=== PATIENT | female | born 1955 | race Caucasian/White ===

== ENCOUNTER 2021-12-27 16:12 | Inpatient (IN) | payer MEDICARE, SELFPAY ==
[2021-12-27] VITALS (12 sets, daily range): BP systolic 155–182; BP diastolic 75–85; PULSE 107–136; RESP 18–26; TEMP 36.7–37.2; O2SAT 98–100; BMI 21.9
--- NOTE | 2021-12-27 18:09 | XRR_ITS ---
PROCEDURE INFORMATION: Exam: XR Chest Exam date and time: 12/27/2021 6:23 PM Age: 66 years old Clinical indication: Other: Weakness TECHNIQUE: Imaging protocol: Radiologic exam of the chest. Views: 1 view. COMPARISON: No relevant prior studies available. FINDINGS: Lungs: Unremarkable. No consolidation. Pleural spaces: Unremarkable. No pleural effusion. No pneumothorax. Heart/Mediastinum: Unremarkable. No cardiomegaly. Bones/joints: Unremarkable. XR/XR chest 1V portable [id number] IMPRESSION: No acute findings.
--- NOTE | 2021-12-27 18:09 | ECG_ITS ---
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 Measurements Intervals Banks Rate: 108 P: 36 VT: 207 QRS: 2 QRSD: 101 T: 75 QT: 327 QTc: 440 Interpretive Statements SINUS TACHYCARDIA ANTERIOR MYOCARDIAL INFARCTION , OF INDETERMINATE AGE [40+ ms Q WAVE AND/OR ST/T ABNORMALITY IN V3/V4] No previous ECG available for comparison Electronically Signed On 12-27-2021 22:50:54 CDT by Danuta Lux M.D. [id number]
--- NOTE | 2021-12-27 18:10 | W.ED.GENADLT ---
HPI - General Adult General: Chief complaint: Recheck/Abnormal Lab/Rx Stated complaint: abnormal labs Time Seen by Provider: 12/27/21 18:08 History of Present Illness: Patient is a 66-year-old female who presents emergency room for concerns of abnormal lab. Patient was found routine blood work to have of elevated kidney function, and hyperkalemia. Patient has no focal complaints at this time. Denies nausea/vomiting, fever/chill, chest pain, shortness of breath, abdominal pain, dysuria/hematuria/polyuria, diarrhea/melena/hematochezia. Onset: unknown Duration:ongoing Location:home Severity:moderate Associated symptoms: Deny chest pain, dyspnea, nausea, rash, palpitations or vomiting Review of Systems Const: Denies: fever(s) or chills Eyes: Denies: change in vision ENMT: Denies: mouth pain Card: Denies: chest pain or palpitations Resp: Denies: dyspnea or non-productive cough GI: Denies: abdominal pain, nausea, vomiting or diarrhea : Denies: dysuria Musc: Denies: extremity pain Skin/Breast: Denies: rash or new lesions Neuro: Denies: weakness in extremities Psych: Reports: other (Normal mood) Daniel/Lymph: Denies: easy bruising PFSH ED PFSH: Medical History Diabetes Hypertension Social History Smoking and tobacco status: never smoked Alcohol intake: never Substance/Drug Use: never Physical Exam Const: COMMON NORMALS: alert HENMT: COMMON NORMALS: atraumatic HEAD & SCALP: atraumatic MOUTH: moist mucous membranes not abnormal Eye: COMMON NORMALS: EOMs intact bilaterally and conjunctivae normal CONJUNCTIVA: Yes conjunctivae normal Neck/C-Spine: COMMON NORMALS: full ROM and supple Resp: COMMON NORMALS: normal respiratory effort and clear to auscultation bilaterally AUSCULTATION: clear to auscultation bilaterally Cardio: RATE: tachycardic GI: COMMON NORMALS: Soft to palpation and non-tender PALPATION: Yes Soft to palpation Extremity: COMMON NORMALS: full ROM Neuro: SENSORIUM/ORIENTATION: Yes alert MOTOR EXAM: No Abnormal motor strength present and Other motor observations present (no focal motor deficits) Psych: COMMON NORMALS: speech normal SPEECH: Yes normal speech MOOD & AFFECT: Yes euthymic mood Course Vital Signs: Vital signs: Vital Signs Temperature 98.0 F 12/27/21 17:23 Pulse Rate 113 H 12/27/21 21:24 Respiratory Rate 23 H 12/27/21 21:24 Blood Pressure 171/82 12/27/21 21:24 Pulse Oximetry 99 12/27/21 21:24 Oxygen Delivery Me thod 12/27/21 21:24 MDM - General Adult Medical Decision Making 66-year-old female presenting to the emergency room for abnormality on routine blood work. Patient's hemodynamically stable with mild tachycardia to the low 100-110s. Patient has potassium 5.6 today. Creatinine of 2.8. BUN of 94. Patient is AAO x3 answering all my questions. EKG did not show signs of hyperkalemia. This was discussed with telemetry nephrology will follow the case. Patient received IVF, 80 mg of Lasix, dextrose 50x2, 10 units of short acting insulin. Patient admitted to the hospital for management of electrolyte changes. Disposition: admission Lab Data : 12/27/21 18:25 12/27/21 18:25 Radiology Impressions Chest X-Ray 12/27/21 18:09 IMPRESSION: No acute findings. Laboratory Results WBC 13.8 10^3/uL (4.0-10.0) H 12/27/21 18:25 RBC 4.03 10^6/uL (4.1-5.3) L 12/27/21 18:25 Hgb 10.9 g/dL (11.5-15.3) L 12/27/21 18: Hct 33.9 % (37.0-47.0) L 12/27/21 18:25 MCV 84.1 fl (81-99) 12/27/21 18: MCH 27.0 pg (28.0-34.0) L 12/27/21 18: MCHC 32.2 g/dL (30.0-36.0) 12/27/21 18:25 RDW 12.6 % (12.1-15.1) 12/27/21 18:25 Plt Count 418 10^3/cmm (130-400) H 12/27/21 18:25 MPV 8.8 fL (7.4-10.4) 12/27/21 18:25 Neut % (Auto) 73.2 % 12/27/21 18:25 Lymph % (Auto) 19.5 % 12/27/21 18:25 Daniels % (Auto) 6.4 % 12/27/21 18:25 Eos % (Auto) 0.3 % 12/27/21 18:25 Baso % (Auto) 0.4 % 12/27/21 18:25 Neut # (Auto) 10.13 10^3/uL (1.8-7.7) H 12/27/21 18:25 Lymph # (Auto) 2.7 10^3/uL (0.8-4.8) 12/27/21 18:25 Daniels # (Auto) 0.9 10^3/uL (0.2-0.9) 12/27/21 18:25 Eos # (Auto) 0.0 10^3/uL (0.0-0.8) 12/27/21 18: Baso # (Auto) 0.1 10^3/uL (0.0-0.1) 12/27/21 18: Nucleated RBC % (auto) 0 % 12/27/21 18: Nucleated RBCs # 0.0 /100WBC 12/27/21 18:25 Sodium 137 mmol/L (136-145) 12/27/21 18:25 Sodium Cancelled 12/27/21 18:25 Potassium 5.6 mmol/L (3.5-5.1) H 12/27/21 18:25 Potassium Cancelled 12/27/21 18:25 Chloride 103 mmol/L (98-107) 12/27/21 18:25 Chloride Cancelled 12/27/21 18:25 Carbon Dioxide 18 mmol/L (22-29) L 12/27/21 18:25 Carbon Dioxide Cancelled 12/27/21 18:25 Anion Gap 21.6 (5-19) H 12/27/21 18:25 Anion Gap Cancelled 12/27/21 18:25 BUN 94 mg/dL (8-23) H* 12/27/21 18:25 BUN Cancelled 12/27/21 18:25 Creatinine 2.8 mg/dL (0.5-0.9) H 12/27/21 18:25 Creatinine Cancelled 12/27/21 18:25 GFR Calculation 16.9 mL/min (90-130) L 12/27/21 18:25 GFR Calculation Cancelled 12/27/21 18:25 Glucose 164 mg/dL (65-115) H 12/27/21 18:25 Glucose Cancelled 12/27/21 18:25 POC Glucose 175 mg/dL (70-110) H 12/27/21 18:14 Calculated Osmolality 317 mOsm/kg (285-295) H 12/27/21 18:25 Calculated Osmolality Cancelled 12/27/21 18:25 Calcium 12.5 mg/dL (8.5-10.5) H 12/27/21 18:25 Calcium Cancelled 12/27/21 18:25 Total Bilirubin 0.2 mg/dL (0.15-1.2) 12/27/21 18:25 Total Bilirubin Cancelled 12/27/21 18:25 AST 14 U/L (0-32) 12/27/21 18:25 AST Cancelled 12/27/21 18:25 ALT 26 U/L (0-33) 12/27/21 18:25 ALT Cancelled 12/27/21 18:25 Alkaline Phosphatase 171 U/L (35-105) H 12/27/21 18:25 Alkaline Phosphatase Cancelled 12/27/21 18:25 Troponin T Baseline 34 ng/L (0-10) H 12/27/21 18:25 Total Protein 7.6 g/dL (6.6-8.7) 12/27/21 18:25 Total Protein Cancelled 12/27/21 18:25 Albumin 4.2 g/dL (3.5-5.2) 12/27/21 18:25 Albumin Cancelled 12/27/21 18:25 Globulin 3.4 g/dL (1.3-4.6) 12/27/21 18:25 Globulin Cancelled 12/27/21 18:25 Lipase Cancelled 12/27/21 18:25 Discharge Plan Discharge Patient Disposition: Admitted As Inpatient Clinical Impression: Uremia, CKD (chronic kidney disease), Hyperkalemia Condition: Stable Coding Level of Care Code ED Hardening Machine Operator for Chg Fwd Exam Comprehensive
[2021-12-27 18:18] LABS: Glucose Point of Care 175 mg/dL (70-110)
[2021-12-27 18:35] LABS: Basophils # 0.1 10^3/uL (0.0-0.1); Basophils % 0.4 %; Eosinophils % 0.3 %; Hematocrit 33.9 % (37.0-47.0); Hemoglobin 10.9 g/dL (11.5-15.3); Lymphocytes # 2.7 10^3/uL (0.8-4.8); Lymphocytes % 19.5 %; Mean Corpuscular HGB Conc 32.2 g/dL (30.0-36.0); Mean Corpuscular Volume 84.1 fl (81-99); Mean Platelet Volume 8.8 fL (7.4-10.4); Monocytes # 0.9 10^3/uL (0.2-0.9); Monocytes % 6.4 %; Neutrophils # 10.13 10^3/uL (1.8-7.7); Neutrophils % 73.2 %; Nucleated Red Blood Cells % 0 %; Platelet Count 418 10^3/cmm (130-400); Red Blood Count 4.03 10^6/uL (4.1-5.3); Red Cell Distribution Width 12.6 % (12.1-15.1); White Blood Count 13.8 10^3/uL (4.0-10.0)
--- NOTE | 2021-12-27 18:49 | PC.NURSE ---
Pt resting in bed, visitor at bedside. Pt A&Ox4, lung sounds clear bilat, heart sounds WNL, bowel sounds present.
--- NOTE | 2021-12-27 18:54 | PC.NURSE ---
report given to OBDULIA Day
[2021-12-27 18:58] LABS: Troponin(5th) Baseline 34 ng/L (0-10)
[2021-12-27 20:11] LABS: Alanine Aminotransferase 26 U/L (0-33); Albumin Level 4.2 g/dL (3.5-5.2); Alkaline Phosphatase 171 U/L (35-105); Anion Gap 21.6 (5-19); Aspartate Amino Transferase 14 U/L (0-32); Calcium 12.5 mg/dL (8.5-10.5); Carbon Dioxide 18 mmol/L (22-29); Chloride 103 mmol/L (98-107); Globulin 3.4 g/dL (1.3-4.6); Glomerular Filtration Rate 16.9 mL/min (90-130); Glucose 164 mg/dL (65-115); Osmolality Calculated 317 mOsm/kg (285-295); Potassium 5.6 mmol/L (3.5-5.1); Sodium 137 mmol/L (136-145); Total Bilirubin 0.2 mg/dL (0.15-1.2); Total Protein 7.6 g/dL (6.6-8.7)
[2021-12-27 20:15] LABS: Blood Urea Nitrogen 94 mg/dL (8-23)
[2021-12-27] MEDS: insulin lispro 100 unit/1 mL 10 UNIT SUBCUT (21:09)
[2021-12-27] MEDS: dextrose 50% syringe 50 mL IVP ×2 (21:09)
[2021-12-27] MEDS: sodium chloride 0.9% 1,000 ML 999 ML IV (21:12)
[2021-12-27] MEDS: FUROsemide 10 mg/mL SDV 10mL 80 MG IVP (21:12)
[2021-12-27 21:25] LABS: Troponin 5 2HR 32.26 ng/L (0-10)
--- NOTE | 2021-12-27 21:29 | ECG_ITS ---
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 Measurements Intervals Varina Rate: 112 P: 58 AL: 218 QRS: 18 QRSD: 108 T: 65 QT: 318 QTc: 435 Interpretive Statements SINUS TACHYCARDIA WITH FIRST DEGREE AV BLOCK POSSIBLE ANTERIOR MYOCARDIAL INFARCTION , OF INDETERMINATE AGE [30 ms Q WAVE IN V3/V4, OR R < 0.2 mV IN V4] Compared to ECG 12/27/2021 18:33:36 First degree AV block now present Myocardial infarct finding still present Electronically Signed On 12-27-2021 22:58:04 CDT by Danuta Lux M.D. [id number]
[2021-12-27 21:37] LABS: Troponin 5 2HR Delta -1.74 ABS# (0-10)
--- NOTE | 2021-12-27 21:38 | P.HP_ITS ---
Providers/Chief Complaint Chief Complaint: abnormal labs History of Present Illness Ada Herbert is a 66 year old female with a past medical history of hypertension, type 2 diabetes mellitus, who presents [facility] due to abnormal outpatient labs. Patient tells me that for the last week she was not feeling well, she had intermittent episodes of nausea, decreased oral appe tite, decreased oral intake of fluids, decreased urination. She is also been constipated, has been roughly a few days before she has her last bowel movement, she has been using milk of mag fairly regularly. Denies any lightheadedness, no dizziness, no nausea, no vomiting, no headache, blurry vision, no flank pain, no back pain. No recent falls, recent injuries. Her only recent medication reilly es were glipizide was stopped. Denies any history of UTIs. No history of kidney stones. She is hypertensive, but she has not taken her medications this evening. Review of Systems Eyes: Denies: change in vision Card: Denies: chest pain, palpitations or syncope Resp: Denies: dyspnea GI: Denies: abdominal pain Medications/Allergies Home Medications Medication Instructions Recorded Confirmed Last Taken Type amlodipine 10 mg tablet 10 mg PO DAILY 12/27/21 12/27/21 12/27/21 History aspirin 81 mg tablet,delayed 81 mg PO BID 12/27/21 12/27/21 12/27/21 History release clonidine HCl 0.2 mg tablet 0.2 mg PO TID 12/27/21 12/27/21 12/27/21 History glimepiride 2 mg tablet 4 mg PO BID 12/27/21 12/27/21 12/27/21 History glipizide 10 mg tablet 20 mg PO BID 12/27/21 12/27/21 12/27/21 History metoprolol tartrate 100 mg tablet 100 mg PO BID 12/27/21 12/27/21 12/27/21 History multivitamin with minerals-folic 2 tab PO DAILY 12/27/21 12/27/21 12/27/21 History acid 200 mcg chewable tablet (Women's Multivitamin Gummies) potassium chloride 10 mEq 10 meq PO BID 12/27/21 12/27/21 12/27/21 History tablet,extended release triamterene 75 1 tab PO DAILY 12/27/21 12/27/21 12/27/21 History mg-hydrochlorothiazide 50 mg tablet vitamin C 90 mg-zinc gluconate 15 2 mike PO DAILY 12/27/21 12/27/21 12/27/21 History mg-herbal complex no. 325 lozenges (Elderberry Zinc Vit C) Allergies Allergy/AdvReac Type Severity Reaction Status Date / Time No Known Allergies Allergy Verified 12/27/21 19:55 PFSH Acute PFSH: Medical History (Updated 12/27/21 @ 21:43 by John Gunn MD) Diabetes Hypertension Surgical History (Updated 12/27/21 @ 21:41 by John Gunn MD) No pertinent past surgical history Family History (Updated 12/27/21 @ 21:42 by John Gunn MD) Mother CAD (coronary artery disease) Diabetes Father Emphysema lung Prostate cancer Social History Smoking and tobacco status: never smoked Alcohol intake: never Substance/Drug Use: never Vitals/I&O/Wt Last Vital Signs Temp 98.0 F 12/27/21 17:23 Pulse 112 H 12/27/21 21:30 Resp 26 H 12/27/21 21:30 BP 175/75 12/27/21 21:30 Pulse Ox 100 12/27/21 21:30 O2 Del Method 12/27/21 21:30 Weight last 48 hrs Weight 58.06 kg Physical Exam Const: COMMON NORMALS: no acute distress and patient oriented x3 HENMT: COMMON NORMALS: normocephalic HEAD & SCALP: normocephalic Eye: COMMON NORMALS: Equal, round and reactive pupils present and EOMs intact bilaterally Neck/C-Spine: COMMON NORMALS: no JVD Resp: COMMON NORMALS: normal respiratory effort, No retractions, No use of accessory muscles and clear to auscultation bilaterally AUSCULTATION: clear to auscultation bilaterally Cardio: COMMON NORMALS: no JVD, regular rate, regular rhythm, S1 normal heart sound present and S2 normal heart sound present RATE: regular rate RHYTHM: regular rhythm HEART SOUNDS: S1 normal heart sound present, S2 normal heart sound present and Murmur heart sound present GI: COMMON NORMALS: Normal to inspection, nondistended, normoactive bowel sounds present, Soft to palpation, non-tender, No hepatosplenomegaly present, no masses and no bruits PALPATION: Yes Soft to palpation and Yes No hepatosplenomegaly present Extremity: COMMON NORMALS: capillary refill normal, no clubbing, cyanosis or edema, no calf tenderness and no pedal edema Neuro: COMMON NORMALS: patient oriented x3, CN's II-XII intact bilaterally, moves all extremities and no focal motor deficits Psych: COMMON NORMALS: mental status grossly normal Data : 12/27/21 18:25 12/27/21 18:25 A&P Assessment and plan (1) Acute kidney injury: Status: Acute (2) Hyperkalemia: Status: Acute (3) Hypertensive urgency: Status: Acute Plan Acute kidney injury -Etiology unclear at this time -Possibly multifactorial from dehydration, milk of mag, blood pressure medications, glipizide, glimepiride -Does have hypercalcemia, and anemia Plan -PTH, retake count, urine studies, SPEP UPEP, ionized calcium, PTH -IV fluids -Renal ultrasound -Nephrology consulted -Avoid nephrotoxic agents -Full code -Heparin for DVT prophylaxis Hyperkalemia, no chest pain complaints, has received D50, 10 units of insulin Hypercalcemia, as above Type 2 diabetes mellitus, low-dose sliding scale -On discharge would discontinue glipizide and glimepiride, check A1c Attestations Medical Necessity Statement*: Patient requires hospitalization, outpatient with observation, for acute kidney injury Coding Level of Care Code 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
[2021-12-27 21:44] LABS: Reticulocyte % 1.5 % (0.5-2.0)
[2021-12-27 22:26] LABS: Amphetamines Screen Urine Negative (Negative); Barbiturates Screen Urine Negative (Negative); Benzodiazepines Screen Urine Negative (Negative); Cocaine Screen Urine Negative (Negative); Opiate Screen Urine Negative (Negative); PCP Screen Urine Negative (Negative); THC Screen Urine Negative (Negative)
[2021-12-27 22:50] LABS: Potassium, Radom Urine 33 mmol/L; Urine Creatinine 24 mg/dL (28-217); Urine Random Chloride 71 mmol/L; Urine Random Sodium 67 mmol/L
[2021-12-27 22:58] LABS: Protein Urine 2+ (Negative); Specific Gravity, Urine 1.005 (1.005-1.030); Urine Appearance Cloudy (CLEAR); Urine Color Yellow (Yellow); pH Urine 6 (5-7)
[2021-12-27 22:59] LABS: Add Urine Microscopic? YES; Bilirubin Urine Neg (Negative); Blood Urine 2+ (Negative); Glucose Urine UA 2+ (Normal); Ketones Urine Negative (Negative); Leukocyte Esterase Urine 2+ (Negative); Nitrate Urine Negative (Negative); Urobilinogen Urine Norm (Negative)
[2021-12-27 23:00] LABS: Bacteria Urine 4+ /hpf; Squamous Epithelial Cell Urine 0-4 /hpf (0-5); WBC Urine TOO NUMEROUS TO CNT /hpf (0-5)
[2021-12-27 23:01] LABS: Add Urine Culture? Yes; Mucus Urine 2+ /hpf
[2021-12-27] MEDS: cloNIDine 0.1 mg Tablet 0.2 MG PO (23:03)
[2021-12-27] MEDS: metoprolol tartrate 50 mg Tablet 100 MG PO (23:03)
[2021-12-27] MEDS: heparin 5,000 unit/mL INJ 1 mL 5000 UNIT SUBCUT (23:03)
[2021-12-27] MEDS: sodium chloride 0.9% 1,000 ML 100 ML IV (23:04)
[2021-12-28] VITALS (7 sets, daily range): BP systolic 146–185; BP diastolic 74–96; PULSE 94–115; RESP 13–18; TEMP 36.7–37.3; O2SAT 97–99
[2021-12-28 02:37] LABS: Basophils % 0.4 %; Eosinophils # 0.1 10^3/uL (0.0-0.8); Eosinophils % 0.6 %; Hematocrit 30.4 % (37.0-47.0); Hemoglobin 9.6 g/dL (11.5-15.3); Lymphocytes # 2.4 10^3/uL (0.8-4.8); Lymphocytes % 20.7 %; Mean Corpuscular HGB Conc 31.6 g/dL (30.0-36.0); Mean Corpuscular Hemoglobin 27.1 pg (28.0-34.0); Mean Corpuscular Volume 85.9 fl (81-99); Mean Platelet Volume 9.2 fL (7.4-10.4); Monocytes # 1.1 10^3/uL (0.2-0.9); Monocytes % 9.8 %; Neutrophils # 7.77 10^3/uL (1.8-7.7); Neutrophils % 68.2 %; Nucleated Red Blood Cells % 0 %; Platelet Count 390 10^3/cmm (130-400); Red Blood Count 3.54 10^6/uL (4.1-5.3); Red Cell Distribution Width 12.8 % (12.1-15.1); White Blood Count 11.4 10^3/uL (4.0-10.0)
[2021-12-28 02:54] LABS: Estmated Average Glucose 189; Hemoglobin A1C 8.2 % (4.0-6.0)
[2021-12-28 02:58] LABS: Lactic Sepsis W/Reflex 1.5 mmol/L (0.5-2.2)
[2021-12-28 03:01] LABS: Chol HDL Ratio 4.48 mg/dL (0.0-4.40); Cholesterol 103 mg/dL (0-200); HDL Cholesterol 23 mg/dL (60-100); LDL Cholesterol Calculated 43 mg/dL (50-129); LDL HDL Ratio 1.87 RATIO (0.00-3.22); Triglycerides 186 mg/dL (0-150)
[2021-12-28 03:11] LABS: Alanine Aminotransferase 19 U/L (0-33); Albumin Level 3.2 g/dL (3.5-5.2); Alkaline Phosphatase 128 U/L (35-105); Anion Gap 18.6 (5-19); Aspartate Amino Transferase 10 U/L (0-32); Calcium 11.1 mg/dL (8.5-10.5); Carbon Dioxide 19 mmol/L (22-29); Chloride 107 mmol/L (98-107); Globulin 3.1 g/dL (1.3-4.6); Glomerular Filtration Rate 16.2 mL/min (90-130); Glucose 155 mg/dL (65-115); Osmolality Calculated 320 mOsm/kg (285-295); Potassium 4.6 mmol/L (3.5-5.1); Sodium 140 mmol/L (136-145); Total Bilirubin 0.2 mg/dL (0.15-1.2); Total Protein 6.3 g/dL (6.6-8.7)
[2021-12-28 03:12] LABS: Phosphorus 4.4 mg/dL (2.5-4.5); Thyroid Stimulating Hormone 0.01 uIU/mL (0.27-4.20)
[2021-12-28 03:14] LABS: Creatine Phosphokinase 26 U/L (26-192); Ferritin 315 ng/mL (15-150); Iron 40 ug/dL (37-145)
[2021-12-28 03:15] LABS: Calcium 12.5 mg/dL (8.5-10.5)
[2021-12-28 03:22] LABS: Parathyroid Hormone 61.3 pg/mL (15-65)
[2021-12-28 03:30] LABS: 25 Hydroxy Vitamin D 43 ng/mL (30-100)
[2021-12-28 03:34] LABS: Blood Urea Nitrogen 87 mg/dL (8-23)
[2021-12-28 04:36] LABS: Eosinophil Urine Eosinophils Seen
[2021-12-28 04:46] LABS: Urine Eosinophil Count 6 (0-0)
[2021-12-28 06:21] LABS: Glucose Point of Care 90 mg/dL (70-110)
[2021-12-28] MEDS: sodium chloride 0.9% 1,000 ML 100 ML IV ×2 (09:04→18:07)
[2021-12-28] MEDS: metoprolol tartrate 50 mg Tablet 100 MG PO ×2 (09:05→20:41)
[2021-12-28] MEDS: sodium bicarbonate 650 mg Tablet PO ×3 (09:06→20:41)
[2021-12-28] MEDS: aspirin 81 mg EC Tablet PO (09:07)
[2021-12-28] MEDS: heparin 5,000 unit/mL INJ 1 mL 5000 UNIT SUBCUT ×2 (09:07→20:41)
[2021-12-28] MEDS: pantoprazole DR 40 mg Tablet PO (09:07)
[2021-12-28] MEDS: cloNIDine 0.1 mg Tablet 0.2 MG PO ×2 (09:07→20:40)
[2021-12-28] MEDS: amlodipine 10 mg Tablet PO (09:07)
[2021-12-28 11:10] LABS: Glucose Point of Care 204 mg/dL (70-110)
--- NOTE | 2021-12-28 11:27 | PM.PN ---
Subjective Subjective: Nephro to see her today Patient looks dehydrated 700 mL urine output Potassium improved She carries history of diabetes Currently getting normal saline and bicarb Vitals/I&O/Wt Last Vital Signs Temp 98.4 F 12/28/21 07:51 Pulse 98 12/28/21 07:51 Resp 18 12/28/21 07:51 BP 185/96 12/28/21 07:51 Pulse Ox 99 12/28/21 07:51 O2 Del Method 12/28/21 07:51 12/27/21 12/28/21 12/28/21 22:59 06:59 14:59 Intake Total 1000 / 1000 1460 / 2460 1240 / 1240 Output Total 1850 / 1850 Balance 1000 / 1000 -390 / 610 1240 / 1240 Weight last 48 hrs Weight 58.06 kg Physical Exam Narrative: Patient looks dehydrated Awake and alert Nonfocal neuro exam No signs of uremia S1, S2 Currently saturating well on room air Urine output clear urine 700 mm No signs of edema No asterixis Awake and alert Daughter at the bedside Urinary Catheter Management: Ledesma: Cath Placed During This Visit: yes Reason for Continuing Indwelling Catheter: Acute Urinary Retention or Obstruction Urinary Catheter Date of Insertion: 12/28/21 Urinary Catheter Time of Insertion: 03:10 Data : 12/28/21 01:14 12/28/21 01:14 A&P Assessment and plan (1) Hypertensive urgency: Status: Acute (2) Hyperkalemia: Status: Acute (3) Acute kidney injury: Status: Acute (4) Uremia: Status: Acute (5) Anemia: Status: Acute (6) Hypercalcemia: Status: Acute Plan Anemia CHRISTOPH Hypercalcemia No signs of oliguria No signs of ATN Diabetes related nephropathy versus dehydration Continue normal saline Hypercalcemia related to dehydration? Check vitamin D, PTH, patient is currently doing well on room air No history of cancer We will follow-up with nephro recommendations Patient is full code Currently on cardiac diet DVT prophylaxis Heparin Hypertensive: Currently on metoprolol, clonidine, amlodipine at home she was taking triamterene, hydrochlorothiazide as well along glipizide, glimepiride Attestations Medical Necessity Statement*: Continue medical management Time Spent in Patient Care: 30 Coding Level of Care Code Acute Environmental Remediation Consultant for karen Corona Diagnoses Hypertensive urgency I16.0 Hyperkalemia E87.5 Acute kidney injury N17.9 Uremia N19 Anemia D64.9 Hypercalcemia E83.52
[2021-12-28] MEDS: insulin lispro 100 unit/1 mL SUBCUT ×2 (12:38→18:06)
--- NOTE | 2021-12-28 12:46 | P.CONIM_ITS ---
Providers/Reason For Consult Consulting Physician/Specialty*: Rosalba Dhillon DO, telenephrology Reason for Consult*: Acute Kidney Injury Requesting Physician: Susan White MD Attending Physician: Susan White MD History of Present Illness History of Present Illness Ada Herbert is a 66 year old female presenting for evaluation. Sent to ER for abnormal labs, but states she has been feeling sick for a couple of weeks. Mainly abdominal pain. denies use of NSAIDs. Denies prior kidney disease. Medications/Allergies Home Medications Medication Instructions Recorded Confirmed Last Taken Type amlodipine 10 mg tablet 10 mg PO DAILY 12/27/21 12/27/21 12/27/21 History aspirin 81 mg tablet,delayed 81 mg PO BID 12/27/21 12/27/21 12/27/21 History release clonidine HCl 0.2 mg tablet 0.2 mg PO TID 12/27/21 12/27/21 12/27/21 History glimepiride 2 mg tablet 4 mg PO BID 12/27/21 12/27/21 12/27/21 History glipizide 10 mg tablet 20 mg PO BID 12/27/21 12/27/21 12/27/21 History metoprolol tartrate 100 mg tablet 100 mg PO BID 12/27/21 12/27/21 12/27/21 History multivitamin with minerals-folic 2 tab PO DAILY 12/27/21 12/27/21 12/27/21 History acid 200 mcg chewable tablet (Women's Multivitamin Gummies) potassium chloride 10 mEq 10 meq PO BID 12/27/21 12/27/21 12/27/21 History tablet,extended release triamterene 75 1 tab PO DAILY 12/27/21 12/27/21 12/27/21 History mg-hydrochlorothiazide 50 mg tablet vitamin C 90 mg-zinc gluconate 15 2 mike PO DAILY 12/27/21 12/27/21 12/27/21 History mg-herbal complex no. 325 lozenges (Elderberry Zinc Vit C) Allergies Allergy/AdvReac Type Severity Reaction Status Date / Time No Known Allergies Allergy Verified 12/27/21 19:55 Current Medications Generic Name Dose Route Start Last Admin Trade Name Freq PRN Reason Stop Dose Admin Amlodipine Besylate 10 mg 12/28/21 09:00 12/28/21 09:07 Amlodipine 10 Mg Tablet PO 10 mg DAILY TOSHIA Administration Aspirin 81 mg 12/28/21 09:00 12/28/21 09:07 Aspirin 81 Mg Ec Tablet PO 81 mg DAILY TOSHIA Administration Clonidine HCl 0.2 mg 12/27/21 22:24 12/28/21 09:07 Clonidine 0.1 Mg Tablet PO 0.2 mg Q12H TOSHIA Administration Heparin Sodium (Porcine) 5,000 unit 12/27/21 22:24 12/28/21 09:07 Heparin 5,000 Unit/Ml Inj 1 Ml SUBCUT 5,000 unit Q12H TOSHIA Administration Sodium Chloride 1,000 mls @ 100 mls/hr 12/27/21 22:24 12/28/21 09:04 Sodium Chloride 0.9% IV 100 mls/hr .Q10H TOSHIA Administration Insulin Human Lispro 0 unit 12/28/21 08:00 12/28/21 12:38 Insulin Lispro 100 Unit/1 Ml SUBCUT 4 unit TIDWM TOSHIA Administration Protocol Metoprolol Tartrate 100 mg 12/27/21 22:24 12/28/21 09:05 Metoprolol Tartrate 50 Mg Tablet PO 100 mg Q12H TOSHIA Administration Pantoprazole Sodium 40 mg 12/28/21 09:00 12/28/21 09:[address] 40 Mg Tablet PO 40 mg DAILY TOSHIA Administration Sodium Bicarbonate 650 mg 12/28/21 09:00 12/28/21 09:06 Sodium Bicarbonate 650 Mg Tablet PO 650 mg TID TOSHIA Administration PFSH Acute PFSH: Medical History Diabetes Hypertension Surgical History No pertinent past surgical history Family History Mother CAD (coronary artery disease) Diabetes Father Emphysema lung Prostate cancer Social History Smoking and tobacco status: never smoked Alcohol intake: never Substance/Drug Use: never Vitals/I&O/Wt Last Vital Signs Temp 98.3 F 12/28/21 11:40 Pulse 94 12/28/21 11:40 Resp 16 12/28/21 11:40 BP 146/96 12/28/21 11:40 Pulse Ox 98 12/28/21 11:40 O2 Del Method 12/28/21 11:40 12/27/21 12/28/21 12/28/21 22:59 06:59 14:59 Intake Total 1000 / 1000 1460 / 2460 1240 / 1240 Output Total 1850 / 1850 Balance 1000 / 1000 -390 / 610 1240 / 1240 Weight last 48 hrs Weight 58.06 kg Physical Exam Const: COMMON NORMALS: no acute distress and alert Extremity: COMMON NORMALS: no pedal edema Neuro: SENSORIUM/ORIENTATION: Yes alert Urinary Catheter Management: Moss: Cath Placed During This Visit: yes Reason for Continuing Indwelling Catheter: Acute Urinary Retention or Obstruction Urinary Catheter Date of Insertion: 12/28/21 Urinary Catheter Time of Insertion: 03:10 Data : 12/28/21 01:14 12/28/21 01:14 Other Labs: Ca 11.1, phos 4.4, PTH 61, TSH low Gillian 67. urine + WBC, + eos, + bacteremia, + protein US: Radiologist's impression: The right kidney measures 11.1 cm x 6.0 cm x 6.6 cm and the left kidney is 11.6 cm x 5.8 cm x 5.4 cm. There are multiple small cysts bilaterally. No masses or hydronephrosis is seen.. The renal cortical margin is normal. No renal calculi are seen. The abdominal aorta and inferior vena cava show no vascular abnormalities. The prevoid bladder volume was 629 mL. After catheter drainage the bladder volume was 31 mL. A&P Assessment and plan (1) Acute kidney injury: Status: Acute Plan Seen via telemedicine with assistance of RN at bedside. 1. Acute kidney injury. I do not have access to baseline serum Cr. 2. Hypercalcemia. PTH is higher than expected, but unlikely only cause for hypercalcemia. Improving with IVF hydration. Paraproteinemia work-up pending. Eosinophils seen in urine (normal in blood, no rash) 3. Severe hypertension, BP improving 4. Urine retention,now with moss, urine output 1000 ml/8h 5. Hyperkalemia, due to potassium supplement, triamterene and CHRISTOPH, resolved 6. Metabolic acidosis, sodium bicarbonate started Rec: continue IVF NSS at 100 ml/hr. Continue moss. 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
[2021-12-28 17:18] LABS: Glucose Point of Care 155 mg/dL (70-110)
[2021-12-28 21:25] LABS: Glucose Point of Care 170 mg/dL (70-110)
--- NOTE | 2021-12-28 21:35 | US_ITS ---
WS: [id number] Bilateral renal ultrasound, Clinical Data: paulina Comparison: None. Findings: The right kidney measures 11.1 cm x 6.0 cm x 6.6 cm and the left kidney is 11.6 cm x 5.8 cm x 5.4 cm. There are multiple small cysts bilaterally. No masses or hydronephrosis is seen.. The renal cortical margin is normal. No renal calculi are seen. The abdominal aorta and inferior vena cava show no vascular abnormalities. The prevoid bladder volume was 629 mL. After catheter drainage the bladder volume was 31 mL. US/US renal BI* [id number] Impression: 1. Distended bladder. 2. Multiple small bilateral renal cysts.
[2021-12-29] VITALS: BP 133/67; PULSE 74; RESP 14; TEMP 37; O2SAT 93
[2021-12-29] MEDS: sodium chloride 0.9% 1,000 ML 100 ML IV (01:00)
[2021-12-29 04:00] VITALS: BP 177/80; PULSE 105; RESP 13; TEMP 37.3; O2SAT 98
[2021-12-29 06:14] LABS: Glucose Point of Care 84 mg/dL (70-110)
[2021-12-29 06:20] LABS: Basophils % 0.3 %; Eosinophils # 0.2 10^3/uL (0.0-0.8); Eosinophils % 3.7 %; Hemoglobin 9.2 g/dL (11.5-15.3); Lymphocytes % 34.1 %; Mean Corpuscular HGB Conc 30.7 g/dL (30.0-36.0); Mean Corpuscular Hemoglobin 26.7 pg (28.0-34.0); Mean Corpuscular Volume 87.2 fl (81-99); Mean Platelet Volume 8.8 fL (7.4-10.4); Monocytes # 0.7 10^3/uL (0.2-0.9); Monocytes % 12.1 %; Neutrophils # 2.96 10^3/uL (1.8-7.7); Neutrophils % 49.6 %; Nucleated Red Blood Cells % 0 %; Platelet Count 307 10^3/cmm (130-400); Red Blood Count 3.44 10^6/uL (4.1-5.3); Red Cell Distribution Width 12.9 % (12.1-15.1)
[2021-12-29 06:44] LABS: Anion Gap 14.1 (5-19); Blood Urea Nitrogen 65 mg/dL (8-23); Calcium 10.5 mg/dL (8.5-10.5); Carbon Dioxide 20 mmol/L (22-29); Chloride 114 mmol/L (98-107); Glomerular Filtration Rate 21.2 mL/min (90-130); Glucose 74 mg/dL (65-115); Magnesium 1.8 mg/dL (1.7-2.3); Osmolality Calculated 317 mOsm/kg (285-295); Phosphorus 3.7 mg/dL (2.5-4.5); Sodium 145 mmol/L (136-145)
[2021-12-29 07:19] LABS: Potassium 3.1 mmol/L (3.5-5.1)
[2021-12-29 08:00] VITALS: BP 171/70; PULSE 113; RESP 17; TEMP 36.5; O2SAT 97
[2021-12-29] MEDS: cloNIDine 0.1 mg Tablet 0.2 MG PO ×2 (08:46→15:44)
[2021-12-29] MEDS: pantoprazole DR 40 mg Tablet PO (08:46)
[2021-12-29] MEDS: sodium bicarbonate 650 mg Tablet PO ×3 (08:46→20:02)
[2021-12-29] MEDS: aspirin 81 mg EC Tablet PO (08:46)
[2021-12-29] MEDS: amlodipine 10 mg Tablet PO (08:46)
[2021-12-29] MEDS: heparin 5,000 unit/mL INJ 1 mL 5000 UNIT SUBCUT ×2 (08:46→20:02)
[2021-12-29] MEDS: metoprolol tartrate 50 mg Tablet 100 MG PO ×2 (08:46→20:01)
--- NOTE | 2021-12-29 11:36 | PM.PN ---
Subjective Subjective: States she feels fine Vitals/I&O/Wt Last Vital Signs Temp 97.7 F 12/29/21 08:00 Pulse 113 H 12/29/21 08:00 Resp 17 12/29/21 08:00 BP 171/70 12/29/21 08:00 Pulse Ox 97 12/29/21 08:00 O2 Del Method 12/29/21 04:00 O2 Flow Rate 9 12/29/21 00:00 12/28/21 12/29/21 12/29/21 22:59 06:59 14:59 Intake Total 1265 / 2745 808.333 / 3553.333 Output Total 2049 / 2049 1000 / 3050 Balance -785 / 695 -191.667 / 503.333 Weight last 48 hrs Weight 58.06 kg Physical Exam Const: COMMON NORMALS: no acute distress and alert Neuro: SENSORIUM/ORIENTATION: Yes alert Urinary Catheter Management: Moss: Cath Placed During This Visit: yes Reason for Continuing Indwelling Catheter: Acute Urinary Retention or Obstruction Urinary Catheter Date of Insertion: 12/28/21 Urinary Catheter Time of Insertion: 03:10 Data : 12/29/21 05:58 12/29/21 05:58 Micro: Microbiology 12/27/21 22:08 Urine Culture - Final Urine,Clean Catch A&P Assessment and plan (1) Acute kidney injury: Status: Acute Plan Seen via telemedicine with assistance of RN at bedside. 1. Acute kidney injury. I do not have access to baseline serum Cr. Improving. Urine output 3L/24h 2. Hypercalcemia. PTH is higher than expected, but unlikely only cause for hypercalcemia. Improving with IVF hydration. Paraproteinemia work-up pending. Eosinophils seen in urine (normal in blood, no rash) 3. Severe hypertension, BP better. Increase clonidine to TID 4. Urine retention,now with moss. Voiding trial tomorrow 5. Hypokalemia, received treatment for hyperkalemia on admission. Will rx 20mEq po KCl 6. Metabolic acidosis, improved, continue sodium bicarbonate 7. Anemia, check iron studies Rec: continue IVF NSS, reduce to 60 ml/hr. 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
--- NOTE | 2021-12-29 12:41 | P.PN_ITS ---
Subjective Subjective: Excellent urine output Creatinine trending down No eosinophils on peripheral smear however urine eosinophils noted Nephrotoxic agents on hold Decrease IV fluids to 50 mill per hour, she is getting hypertensive Add antihypertensive regimen today Family and daughter updated Appreciate nephro recommendations Requested patient to get out of bed and move around, request PT She does use a walker at home She has not been able to eat, she is not liking the food, will change her diet to regular, Vitals/I&O/Wt Last Vital Signs Temp 97.7 F 12/29/21 08:00 Pulse 113 H 12/29/21 08:00 Resp 17 12/29/21 08:00 BP 171/70 12/29/21 08:00 Pulse Ox 97 12/29/21 08:00 O2 Del Method 12/29/21 04:00 O2 Flow Rate 9 12/29/21 00:00 12/28/21 12/29/21 12/29/21 22:59 06:59 14:59 Intake Total 1265 / 2745 808.333 / 3553.333 Output Total 2049 / 2049 1000 / 3050 Balance -785 / 695 -191.667 / 503.333 Weight last 48 hrs Weight 58.06 kg Physical Exam Narrative: Patient is awake and alert Well-hydrated Clear urine in the bag Awake and alert Hypertensive Currently on room air Abdomen soft No audible stridor or wheezing Active chest pain Urinary Catheter Management: Ledesma: Cath Placed During This Visit: yes Reason for Continuing Indwelling Catheter: Acute Urinary Retention or Obstruction Urinary Catheter Date of Insertion: 12/28/21 Urinary Catheter Time of Insertion: 03:10 Data : 12/29/21 05:58 12/29/21 05:58 Micro: Microbiology 12/27/21 22:08 Urine Culture - Final Urine,Clean Catch A&P Assessment and plan (1) Acute kidney injury: Status: Acute (2) Hypercalcemia: Status: Acute (3) Anemia: Status: Acute (4) Hypertensive urgency: Status: Acute (5) Hyperkalemia: Status: Acute (6) Acute kidney injury: Status: Acute (7) Uremia: Status: Acute Plan Hypertensive urgency: Added metoprolol to amlodipine, added hydralazine Clonidine was added by unit secy today Decrease normal saline to 50 mill per hour CHRISTOPH Likely related to dehydration with underlying concomitant use of nephrotoxic agents Urine eosinophil present Appreciate nephro recommendations Creatinine trending down Multiple cysts noted Multiple myeloma work-up has been initiated Hypercalcemia proved to normal IV fluid hydration Check free T4 level TSH was suppressed UTI: Antibiotics to be continued Physical therapy Regular diet Full code Attestations Medical Necessity Statement*: Continue medical management Time Spent in Patient Care: 30 Coding Level of Care Code Acute Bariatric Program Coordinator for [facility] Fwd Diagnoses Acute kidney injury N17.9 Hypercalcemia E83.52 Anemia D64.9 Hypertensive urgency I16.0 Hyperkalemia E87.5 Acute kidney injury N17.9 Uremia N19
[2021-12-29 12:47] LABS: Glucose Point of Care 173 mg/dL (70-110)
[2021-12-29] MEDS: potassium chloride ER 20 mEq Tablet PO (12:52)
[2021-12-29] MEDS: insulin lispro 100 unit/1 mL SUBCUT (12:58)
[2021-12-29 14:47] LABS: Creatinine, Random Urine 20 mg/dL (20-275); Protein, Total, Random 100 mg/dL (5-24); Protein/Creatinine Ratio 5000 mg/g creat (21-161)
[2021-12-29 15:14] LABS: 25 Hydroxy Vitamin D 36 ng/mL (30-100)
[2021-12-29] MEDS: hyDRALAzine 10 mg Tablet PO ×2 (15:44→20:02)
[2021-12-29 16:00] VITALS: BP 178/83; PULSE 95; RESP 17; TEMP 36.6; O2SAT 98
[2021-12-29] MEDS: sodium chloride 0.9% 1,000 ML 50 ML IV (17:14)
[2021-12-29 17:35] LABS: Glucose Point of Care 115 mg/dL (70-110)
[2021-12-29 20:00] VITALS: BP 169/78; PULSE 100; RESP 14; TEMP 36.9; O2SAT 98
--- NOTE | 2021-12-29 20:00 | PC.NURSE ---
Patient states that she had a bowel movement around noon today.
[2021-12-29 21:05] LABS: Glucose Point of Care 202 mg/dL (70-110)
[2021-12-29] MEDS: insulin glargine 100 units/1 mL 10 UNIT SUBCUT (22:24)
[2021-12-30] VITALS (8 sets, daily range): BP systolic 123–187; BP diastolic 62–85; PULSE 84–104; RESP 14–17; TEMP 36.7–37.1; O2SAT 97–99
[2021-12-30] MEDS: cloNIDine 0.1 mg Tablet 0.2 MG PO ×3 (00:23→16:14)
[2021-12-30 05:16] LABS: Basophils % 0.6 %; Eosinophils # 0.2 10^3/uL (0.0-0.8); Eosinophils % 4.8 %; Hematocrit 27.3 % (37.0-47.0); Hemoglobin 8.7 g/dL (11.5-15.3); Mean Corpuscular HGB Conc 31.9 g/dL (30.0-36.0); Mean Corpuscular Hemoglobin 27.1 pg (28.0-34.0); Monocytes # 0.6 10^3/uL (0.2-0.9); Monocytes % 12.5 %; Neutrophils # 2.17 10^3/uL (1.8-7.7); Neutrophils % 42.9 %; Nucleated Red Blood Cells % 0 %; Platelet Count 274 10^3/cmm (130-400); Red Blood Count 3.21 10^6/uL (4.1-5.3); White Blood Count 5.1 10^3/uL (4.0-10.0)
[2021-12-30 05:51] LABS: Procalcitonin 0.48 ng/mL (0-0.5)
[2021-12-30 06:04] LABS: Alanine Aminotransferase 15 U/L (0-33); Albumin Level 2.9 g/dL (3.5-5.2); Alkaline Phosphatase 118 U/L (35-105); Anion Gap 15.4 (5-19); Aspartate Amino Transferase 13 U/L (0-32); Blood Urea Nitrogen 54 mg/dL (8-23); Calcium 10.1 mg/dL (8.5-10.5); Carbon Dioxide 22 mmol/L (22-29); Chloride 106 mmol/L (98-107); Ferritin 219 ng/mL (15-150); Globulin 2.9 g/dL (1.3-4.6); Glomerular Filtration Rate 28.2 mL/min (90-130); Glucose 210 mg/dL (65-115); Iron 37 ug/dL (37-145); Magnesium 1.6 mg/dL (1.7-2.3); Osmolality Calculated 311 mOsm/kg (285-295); Percent Saturation 22.1 % (20-50); Phosphorus 2.9 mg/dL (2.5-4.5); Potassium 3.4 mmol/L (3.5-5.1); Sodium 140 mmol/L (136-145); Total Bilirubin 0.2 mg/dL (0.15-1.2); Total Iron Binding Capacity 167 mcg/dl; Total Protein 5.8 g/dL (6.6-8.7); Unsaturated Iron Binding 130 ug/dL (112-347)
[2021-12-30 06:16] LABS: Glucose Point of Care 162 mg/dL (70-110)
[2021-12-30] MEDS: hyDRALAzine 10 mg Tablet PO ×3 (10:06→21:38)
[2021-12-30] MEDS: metoprolol tartrate 50 mg Tablet 100 MG PO ×2 (10:06→21:38)
[2021-12-30] MEDS: pantoprazole DR 40 mg Tablet PO (10:07)
[2021-12-30] MEDS: aspirin 81 mg EC Tablet PO (10:07)
[2021-12-30] MEDS: sodium bicarbonate 650 mg Tablet PO (10:07)
[2021-12-30] MEDS: heparin 5,000 unit/mL INJ 1 mL 5000 UNIT SUBCUT ×2 (10:08→21:38)
[2021-12-30] MEDS: amlodipine 10 mg Tablet PO (10:08)
[2021-12-30] MEDS: insulin lispro 100 unit/1 mL SUBCUT ×3 (10:15→17:24)
[2021-12-30 11:23] LABS: Glucose Point of Care 181 mg/dL (70-110)
--- NOTE | 2021-12-30 12:45 | PM.PN ---
Subjective Subjective: Creatinine trending down Good urine output Continue IV fluids at 50 mill per hour Production related Hypertension, A. fib RVR Patient is able to walk on her own Feeling better Vitals/I&O/Wt Last Vital Signs Temp 98.5 F 12/30/21 08:00 Pulse 101 H 12/30/21 08:00 Resp 16 12/30/21 08:00 BP 176/71 12/30/21 08:00 Pulse Ox 98 12/30/21 08:00 O2 Del Method 12/30/21 08:00 O2 Flow Rate 9 12/29/21 00:00 12/29/21 12/30/21 12/30/21 22:59 06:59 14:59 Intake Total 240 / 1240 240 / 1480 Output Total 1700 / 1700 1600 / 3300 Balance -1460 / -460 -1360 / -1820 Physical Exam Narrative: Patient is endorsing feeling better Abdomen soft Looks euvolemic Abdomen soft Awake alert Currently on room air A. fib RVR Daughter at the bedside Urinary Catheter Management: Ledesma: Cath Placed During This Visit: yes Reason for Continuing Indwelling Catheter: Acute Urinary Retention or Obstruction Urinary Catheter Date of Insertion: 12/28/21 Urinary Catheter Time of Insertion: 03:10 Data : 12/30/21 04:42 12/30/21 04:42 Micro: Microbiology 12/27/21 22:08 Urine Culture - Final Urine,Clean Catch A&P Assessment and plan (1) Acute kidney injury: Status: Acute (2) Hypercalcemia: Status: Acute (3) Anemia: Status: Acute (4) Hypertensive urgency: Status: Acute (5) Acute kidney injury: Status: Acute (6) Uremia: Status: Acute Plan Hypertensive urgency: Blood pressure improved however not below 140mmhg yet Uptitrate antihypertensive regimen Hypokalemia: Repleted CHRISTOPH related to dehydration and nephrotoxic agents Creatinine improving with IV fluid hydration Significant proteinuria We will follow-up with nephro recommendations Sinus tachycardia will obtain EKG Hypercalcemia: Improved Patient has suppressed TSH with high free T4 that would explain her tachycardia and hypertensive urgency, will add low-dose methimazole No signs of thyroid storm Hyperthyroidism can also cause hypercalcemia Full code UTI we will give her Augmentin DVT prophylaxis with heparin Discharge Friday Attestations Medical Necessity Statement*: Continue medical management Discharge on Friday Time Spent in Patient Care: 30 Coding Level of Care Code Acute Sociology Adjunct Instructor for [facility] Fwd Diagnoses Acute kidney injury N17.9 Hypercalcemia E83.52 Anemia D64.9 Hypertensive urgency I16.0 Acute kidney injury N17.9 Uremia N19
[2021-12-30] MEDS: methIMAzole 5 MG Tablet 10 MG PO (13:53)
[2021-12-30] MEDS: potassium chloride ER 20 mEq Tablet 40 MEQ PO (13:54)
[2021-12-30] MEDS: sodium chloride 0.9% 1,000 ML 50 ML IV (13:56)
--- NOTE | 2021-12-30 14:42 | ECG_ITS ---
[facility] Test Date: 2021-12-30 Pat Name: Ada Herbert Department: Room: 255 Gender: Female Manager Perioperative: : 1955 Requested By: Susan White Order Number: [id number] Riccardo MD: Tahmina Ricardo M.D. Measurements Intervals [place] Rate: 97 P: [place]: QRS: 11 QRSD: 91 T: 65 QT: 360 QTc: 457 Interpretive Statements ATRIAL FIBRILLATION INFERIOR MYOCARDIAL INFARCTION , PROBABLY OLD [40+ ms Q WAVE AND/OR ST/T ABNORMALITY IN II/aVF] Compared to ECG 12/27/2021 21:29:36 Sinus tachycardia no longer present First degree AV block no longer present Myocardial infarct finding still present Electronically Signed On 01-01-2022 7:36:16 CDT by Tahmina Ricardo M.D. [id number]
[2021-12-30] MEDS: amoxicillin-clav 875-125 mg Tablet 1 TAB PO (17:21)
[2021-12-30] MEDS: magnesium oxide 400 mg tablet PO (17:21)
[2021-12-30 17:29] LABS: Glucose Point of Care 235 mg/dL (70-110)
--- NOTE | 2021-12-30 17:38 | PM.PN ---
Subjective Subjective: I am seeing her in follow up for her renal failure. No new complaints. No nausea or vomiting Medications: Reviewed: Yes Vitals/I&O/Wt Last Vital Signs Temp 98.1 F 12/30/21 16:00 Pulse 94 12/30/21 16:00 Resp 16 12/30/21 16:00 BP 143/77 12/30/21 16:00 Pulse Ox 98 12/30/21 16:00 O2 Del Method 12/30/21 16:00 O2 Flow Rate 9 12/29/21 00:00 12/30/21 12/30/21 12/30/21 06:59 14:59 22:59 Intake Total 240 / 1480 1000 / 1000 Output Total 1600 / 3300 850 / 850 Balance -1360 / -1820 1000 / 1000 -850 / 150 Physical Exam Narrative: Awake , alert & oriented times 3 Urinary Catheter Management: Moss: Cath Placed During This Visit: yes Reason for Continuing Indwelling Catheter: Acute Urinary Retention or Obstruction Urinary Catheter Date of Insertion: 12/28/21 Urinary Catheter Time of Insertion: 03:10 Data : 12/30/21 04:42 12/30/21 04:42 A&P Assessment and plan (1) Acute kidney injury: Kidney function improving, cr down to 1.8, continue ivf Avoid nephrotoxins. ok to pull moss cath if successful with bladder training Status: Acute (2) Hypercalcemia: Calcium level improved with ivf. Need to f/u with dentistry teacher locally as outpt to make sure the level stays within normal limits Status: Acute (3) Hypertensive urgency: Monitor BP closely & adjust accordingly Status: Acute Attestations Medical Necessity Statement*: CHRISTOPH Time Spent in Patient Care: 15-30min spent reviewing the chart, seeing the pt & putting in the progress note Coding Level of Care Code Acute Software Reverse Engineer for [facility] Fwd History Problem Focused Exam Problem Focused Medical Decision Making Moderate Complexity Diagnoses Acute kidney injury N17.9 Hypercalcemia E83.52 Hypertensive urgency I16.0 Time Spent (min) 30
[2021-12-30 20:43] LABS: Glucose Point of Care 209 mg/dL (70-110)
[2021-12-30] MEDS: insulin glargine 100 units/1 mL 10 UNIT SUBCUT (21:38)
[2021-12-31] VITALS (8 sets, daily range): BP systolic 159–186; BP diastolic 66–78; PULSE 98–121; RESP 16–18; TEMP 36.8–37.4; O2SAT 96–99
[2021-12-31] MEDS: cloNIDine 0.1 mg Tablet 0.2 MG PO ×2 (00:40→08:37)
[2021-12-31 05:07] LABS: Basophils % 0.5 %; Eosinophils # 0.3 10^3/uL (0.0-0.8); Eosinophils % 4.4 %; Hematocrit 24.9 % (37.0-47.0); Lymphocytes % 33.2 %; Mean Corpuscular HGB Conc 32.1 g/dL (30.0-36.0); Mean Corpuscular Hemoglobin 27.3 pg (28.0-34.0); Monocytes # 0.8 10^3/uL (0.2-0.9); Monocytes % 12.8 %; Neutrophils # 2.98 10^3/uL (1.8-7.7); Neutrophils % 48.9 %; Nucleated Red Blood Cells % 0 %; Platelet Count 272 10^3/cmm (130-400); Red Blood Count 2.93 10^6/uL (4.1-5.3); White Blood Count 6.1 10^3/uL (4.0-10.0)
[2021-12-31 05:29] LABS: Anion Gap 12.7 (5-19); Blood Urea Nitrogen 52 mg/dL (8-23); Calcium 9.9 mg/dL (8.5-10.5); Carbon Dioxide 22 mmol/L (22-29); Chloride 108 mmol/L (98-107); Glomerular Filtration Rate 26.4 mL/min (90-130); Glucose 87 mg/dL (65-115); Osmolality Calculated 301 mOsm/kg (285-295); Potassium 3.7 mmol/L (3.5-5.1); Sodium 139 mmol/L (136-145)
[2021-12-31 06:30] LABS: Glucose Point of Care 85 mg/dL (70-110)
[2021-12-31] MEDS: pantoprazole DR 40 mg Tablet PO (08:36)
[2021-12-31] MEDS: amlodipine 10 mg Tablet PO (08:36)
[2021-12-31] MEDS: methIMAzole 5 MG Tablet 10 MG PO (08:37)
[2021-12-31] MEDS: amoxicillin-clav 875-125 mg Tablet 1 TAB PO ×2 (08:37→17:44)
[2021-12-31] MEDS: aspirin 81 mg EC Tablet PO (08:37)
[2021-12-31] MEDS: hyDRALAzine 10 mg Tablet PO ×3 (08:38→21:01)
--- NOTE | 2021-12-31 11:01 | USCV_ITS ---
BrennasachaAda Age: 66 Gender: F : 1955 Exam Date: 12/31/2021 12:20 Ordering Phys: Susan White MD Technologist: Colten Cabral Exam Location: [facility] [place] Indication: chest pain BP: 132 / 74 HR: 107 Rhythm: Sinus Technical Quality: Adequate MEASUREMENTS (Male / Female) Normal Values 2D ECHO LV Diastolic Diameter PLAX 4.3 cm 4.2 - 5.9 / 3.9 - 5.3 cm LV Systolic Diameter PLAX 3.0 cm IVS Diastolic Thickness 1.3 cm 0.6 - 1.0 / 0.6 - 0.9 cm IVS Systolic Thickness 1.2 cm LVPW Diastolic Thickness 1.2 cm 0.6 - 1.0 / 0.6 - 0.9 cm LVPW Systolic Thickness 1.2 cm LVOT Diameter 2.0 cm LV Ejection Fraction 2D Teich 59.0 % LV Ejection Fraction MOD 2C 57.8 % LV Ejection Fraction 2C AL 57.1 % LA Diameter 4.2 cm IVC Diameter 1.5 cm M-MODE Aortic Annulus Diameter 3.2 cm LA Ao Ratio MM 1.5 MV E Point Septal Separation 0.3 cm DOPPLER AV Peak Velocity 193.0 cm/s LVOT Peak Velocity 117.0 cm/s AV Area Cont Eq vti 2.2 cm squared AV Area Cont Eq pk 1.9 cm squared MV Area PHT 5.0 cm squared Mitral E to A Ratio 4.9 MV E' Velocity 139.0 cm/s TR Peak Velocity 360.3 cm/s TR Peak Gradient 51.9 mmHg TV Peak E Velocity 90.0 cm/s Right Atrial Pressure 3.0 mmHg Pulmonary Artery Systolic Pressu 54.9 mmHg PV Peak Velocity 231.0 cm/s FINDINGS Left Ventricle Normal left ventricular size. LV systolic function is normal with EF of 55 to 60%. No regional wall motion abnormalities. Mild left ventricular hypertrophy is seen. Right Ventricle The right ventricle is normal in size and function. Right Atrium The right atrium is normal in size. Left Atrium The left atrium is normal in size. Mitral Valve Mild mitral annular calcification. Mild mitral regurgitation. Aortic Valve Structurally normal aortic valve without significant sclerosis or stenosis. There is no aortic regurgitation. Tricuspid Valve Mild tricuspid regurgitation. Insufficient TR jet to evaluate RVSP. Pulmonic Valve Not well-visualized Pericardium Normal pericardium without effusion. Aorta Normal ascending aorta dimension. IVC CONCLUSIONS LV systolic function is normal with EF 55 to 60%. Mild left ventricular hypertrophy is seen. Mild mitral regurgitation. Mild mitral annular calcification is seen. Mild tricuspid regurgitation. No comparison studies are available. Héctor Poe MD (Electronically Signed) Final Date: 31 December 2021 17:26 S
--- NOTE | 2021-12-31 11:27 | PM.DCS ---
Discharge Providers Date of Admission: 12/28/21 11:27 Date of Discharge: December 31, 2021 Attending Provider at Admission: John Gunn MD Attending Provider at Discharge: Susan White MD Diagnoses at Discharge Discharge Diagnosis (1) Acute kidney injury: Status: Acute (2) Hypercalcemia: Status: Acute (3) Hypertensive urgency: Status: Acute Reason for Visit Reason for Visit: abnormal labs Physical Exam Urinary Catheter Management: Ledesma: Cath Placed During This Visit: yes, but has since been removed by the nurse Reason for Continuing Indwelling Catheter: Acute Urinary Retention or Obstruction Urinary Catheter Date of Insertion: 12/28/21 Urinary Catheter Time of Insertion: 03:10 Date Urinary Catheter Removed: 12/31/21 Time Urinary Catheter Discontinued: 09:35 Discharge Data Studies Completed and Pending Completed Studies During Hospitalization Category Date Time Status XR chest 1V portable [id number] Stat Exams 12/27/21 18:09 Completed US renal BI* [id number] Stat Ultrasound 12/28/21 21:35 Completed Pending at discharge Category Date Time Status Ionized Calcium Routine Lab 12/27/21 21:51 Received KAPPA/LAMBDA LIGHT FREE SERUM Routine Lab 12/28/21 01:14 Received SPEP [Total Protein Electrophoresis] Routine Lab 12/27/21 18:25 Results Urine Protein Electrop Random Routine Lab 12/28/21 02:50 Results CV. echo complete* [id number] Stat Ultrasound 12/31/21 11:01 Ordered Radiology Impressions Chest X-Ray 12/27/21 18:09 IMPRESSION: No acute findings. Renal Ultrasound 12/28/21 21:35 Impression: 1. Distended bladder. 2. Multiple small bilateral renal cysts. Laboratory Results WBC 6.1 10^3/uL (4.0-10.0) 12/31/21 04:54 RBC 2.93 10^6/uL (4.1-5.3) L 12/31/21 04:54 Hgb 8.0 g/dL (11.5-15.3) L 12/31/21 04:54 Hct 24.9 % (37.0-47.0) L 12/31/21 04:54 MCV 85.0 fl (81-99) 12/31/21 04:54 MCH 27.3 pg (28.0-34.0) L 12/31/21 04:54 MCHC 32.1 g/dL (30.0-36.0) 12/31/21 04:54 RDW 13.0 % (12.1-15.1) 12/31/21 04:54 Plt Count 272 10^3/cmm (130-400) 12/31/21 04:54 MPV 9.0 fL (7.4-10.4) 12/31/21 04:54 Neut % (Auto) 48.9 % 12/31/21 04:54 Lymph % (Auto) 33.2 % 12/31/21 04:54 Crane % (Auto) 12.8 % 12/31/21 04:54 Eos % (Auto) 4.4 % 12/31/21 04:54 Baso % (Auto) 0.5 % 12/31/21 04:54 Reticulocyte % (Auto) 1.5 % (0.5-2.0) 12/27/21 18:25 Neut # (Auto) 2.98 10^3/uL (1.8-7.7) 12/31/21 04:54 Lymph # (Auto) 2.0 10^3/uL (0.8-4.8) 12/31/21 04:54 Crane # (Auto) 0.8 10^3/uL (0.2-0.9) 12/31/21 04:54 Eos # (Auto) 0.3 10^3/uL (0.0-0.8) 12/31/21 04:54 Baso # (Auto) 0.0 10^3/uL (0.0-0.1) 12/31/21 04:54 Nucleated RBC % (auto) 0 % 12/31/21 04:54 Nucleated RBCs # 0.0 /100WBC 12/31/21 04:54 Sodium 139 mmol/L (136-145) 12/31/21 04:54 Potassium 3.7 mmol/L (3.5-5.1) 12/31/21 04:54 Chloride 108 mmol/L (98-107) H 12/31/21 04:54 Carbon Dioxide 22 mmol/L (22-29) 12/31/21 04:54 Anion Gap 12.7 (5-19) 12/31/21 04:54 BUN 52 mg/dL (8-23) H 12/31/21 04:54 Creatinine 1.9 mg/dL (0.5-0.9) H 12/31/21 04:54 GFR Calculation 26.4 mL/min (90-130) L 12/31/21 04:54 Glucose 87 mg/dL (65-115) 12/31/21 04:54 POC Glucose 85 mg/dL (70-110) 12/31/21 06:28 Estimat Average Glucose 189 12/28/21 01:14 Hemoglobin A1c 8.2 % (4.0-6.0) H 12/28/21 01:14 Calculated Osmolality 301 mOsm/kg (285-295) H 12/31/21 04:54 Lactic Acid 1.5 mmol/L (0.5-2.2) 12/28/21 01:14 Calcium 9.9 mg/dL (8.5-10.5) 12/31/21 04:54 Phosphorus 2.9 mg/dL (2.5-4.5) 12/30/21 04:42 Magnesium 1.6 mg/dL (1.7-2.3) L 12/30/21 04:42 Iron 37 ug/dL (37-145) 12/30/21 04:42 TIBC 167 mcg/dl 12/30/21 04:42 % Saturation 22.1 % (20-50) 12/30/21 04:42 Unsat Iron Binding 130 ug/dL (112-347) 12/30/21 04:42 Ferritin 219 ng/mL (15-150) H 12/30/21 04:42 Total Bilirubin 0.2 mg/dL (0.15-1.2) 12/30/21 04:42 AST 13 U/L (0-32) 12/30/21 04:42 ALT 15 U/L (0-33) 12/30/21 04:42 Alkaline Phosphatase 118 U/L (35-105) H 12/30/21 04:42 Creatine Kinase 26 U/L (26-192) 12/27/21 18:25 Troponin T Baseline 34 ng/L (0-10) H 12/27/21 18:25 Troponin T 120 Minute 32.26 ng/L (0-10) H 12/27/21 20:32 Delta Troponin T -1.74 ABS# (0-10) L 12/27/21 20:32 Total Protein 5.8 g/dL (6.6-8.7) L 12/30/21 04:42 Albumin 2.9 g/dL (3.5-5.2) L 12/30/21 04:42 Globulin 2.9 g/dL (1.3-4.6) 12/30/21 04:42 Triglycerides 186 mg/dL (0-150) H 12/28/21 01:14 Cholesterol 103 mg/dL (0-200) 12/28/21 01:14 LDL Cholesterol, Calc 43 mg/dL (50-129) L 12/28/21 01:14 HDL Cholesterol 23 mg/dL (60-100) L 12/28/21 01:14 LDL/HDL Ratio 1.87 RATIO (0.00-3.22) 12/28/21 01:14 Cholesterol/HDL Ratio 4.48 mg/dL (0.0-4.40) H 12/28/21 01:14 Lipase Cancelled 12/27/21 18:25 25-OH Vitamin D Total 36 ng/mL (30-100) 12/29/21 05:58 Procalcitonin 0.48 ng/mL (0-0.5) 12/30/21 04:42 TSH 0.01 uIU/mL (0.27-4.20) L 12/28/21 01:14 Free T4 3.00 ng/dL (0.82-1.77) H 12/29/21 05:58 PTH Intact 61.3 pg/mL (15-65) 12/27/21 18:25 Calcium (PTH Intact) 12.5 mg/dL (8.5-10.5) H 12/27/21 18:25 Urine Color Yellow (Yellow) 12/27/21 22:08 Urine Appearance Cloudy (CLEAR) 12/27/21 22:08 Urine pH 6 (5-7) 12/27/21 22:08 Ur Specific [place] 1.005 (1.005-1.030) 12/27/21 22:08 Urine Protein 2+ (Negative) H 12/27/21 22:08 Urine Glucose (UA) 2+ (Normal) H 12/27/21 22:08 Urine Ketones Negative (Negative) 12/27/21 22:08 Urine Blood 2+ (Negative) H 12/27/21 22:08 Urine Nitrate Negative (Negative) 12/27/21 22:08 Urine Bilirubin Neg (Negative) 12/27/21 22:08 Urine Urobilinogen Norm mg/dL (Negative) 12/27/21 22:08 Ur Leukocyte Esterase 2+ (Negative) H 12/27/21 22:08 Urine RBC 5-10 /hpf (0-2) H 12/27/21 22:08 Urine WBC Too numerous to cnt /hpf (0-5) H 12/27/21 22:08 Ur Eosinophil Smear 6 (0-0) H 12/27/21 22:08 Ur Squamous Epith Cells 0-4 /hpf (0-5) H 12/27/21 22:08 Amorphous Sediment Not Reportable 12/27/21 22:08 Urine Bacteria 4+ /hpf (NONE) H 12/27/21 22:08 Urine Mucus 2+ /hpf 12/27/21 22:08 Urine Eosinophils Eosinophils seen H 12/27/21 22:08 Ur Random Creatinine 20 mg/dL (20-275) 12/28/21 02:50 U Random Total Protein 100 mg/dL (5-24) H 12/28/21 02:50 Ur Random Sodium 67 mmol/L 12/27/21 22:08 Ur Random Potassium 33 mmol/L 12/27/21 22:08 Ur Random Chloride 71 mmol/L 12/27/21 22:08 Urine Creatinine 24 mg/dL (28-217) L 12/27/21 22:08 Protein/Creatinin Ratio 5000 mg/g creat (21-161) H 12/28/21 02:50 Protein/Creat Ratio 24h 5.000 (0.021-0.161) H 12/28/21 02:50 Urine Opiates Screen Negative ng/mL (Negative) 12/27/21 22:08 Ur Barbiturates Screen Negative ng/mL (Negative) 12/27/21 22:08 Ur Phencyclidine Scrn Negative ng/mL (Negative) 12/27/21 22:08 Ur Amphetamines Screen Negative ng/mL (Negative) 12/27/21 22:08 U Benzodiazepines Scrn Negative ng/mL (Negative) 12/27/21 22:08 Urine Cocaine Screen Negative ng/mL (Negative) 12/27/21 22:08 U Marijuana (THC) Screen Negative ng/mL (Negative) 12/27/21 22:08 Vitals Last Vital Signs Temp 99 F 12/31/21 08:00 Pulse 114 H 12/31/21 08:00 Resp 17 12/31/21 08:00 BP 161/66 12/31/21 08:37 Pulse Ox 97 12/31/21 08:00 O2 Del Method 12/31/21 00:03 O2 Flow Rate 9 12/29/21 00:00 Discharge Plan Discharge Patient Disposition: Home Condition: Stable Prescriptions: New methimazole 10 mg tablet 5 mg PO BID Qty: 60 0RF Eliquis 2.5 mg tablet 2.5 mg PO BID Qty: 120 4RF Cardizem LA 120 mg tablet extended release 24 hr 120 mg PO DAILY Qty: 90 2RF amlodipine 10 mg tablet 10 mg PO DAILY Qty: 60 2RF amoxicillin-pot clavulanate 875-125 mg Tablet 1 tab PO BID Qty: 3 0RF magnesium 200 mg tablet 200 mg PO DAILY Qty: 10 0RF potassium chloride 10 mEq tablet extended release 10 meq PO DAILY Qty: 7 0RF hydralazine 10 mg tablet 10 mg PO BID Qty: 60 2RF sitagliptin 25 mg tablet 25 mg PO DAILY Qty: 60 0RF Continued amlodipine 10 mg tablet 10 mg PO DAILY Women's Multivitamin Gummies 200 mcg Tablet,Chewable 2 tab PO DAILY Elderberry Zinc Vit C 90-15 mg Lozenge 2 mike PO DAILY metoprolol tartrate 100 mg tablet 100 mg PO BID Qty: 60 3RF Changed clonidine HCl 0.2 mg tablet 0.1 mg PO TID Qty: 30 0RF Discontinued glipizide 10 mg tablet 20 mg PO BID potassium chloride 10 mEq tablet extended release 10 meq PO BID aspirin [Aspir-81] 81 mg Tablet,Delayed Release (Dr/Ec) 81 mg PO BID glimepiride 2 mg tablet 4 mg PO BID triamterene-hydrochlorothiazid 75-50 mg tablet 1 tab PO DAILY Discharge Orders: Discharge Order (Routine); Ordered 12/31/21 Ordered By: Susan White Other Ambulatory Orders: DME: Wheelchair (Order) Location: None Selected Ordered By: Susan White Referrals: [facility] [place] [Outside] Anthony Haque MD [Referring] - 1-3 days Robert Barrera MD [Physician] - 1-3 days Discharge Diet: Cardiac Discharge Activity: Increase activity as tolerated Patient Instructions: Opioid Safety Activity Restrictions/Additional Instructions: You have been diagnosed with atrial fibrillation which is irregular heart rhythm that puts you at risk of stroke For that you will need Eliquis 2.5 mg twice daily for prevention of stroke and to control heart rate and you will get metoprolol 100 mg twice daily along Cardizem 120 mg daily If your heart rate still remains above 100 we probably have to increase your Cardizem dose to 240 mg Most likely cause of atrial fibrillation is your high T4 and low TSH which will qualify for hyperthyroidism to suppress her thyroid hyperfunctioning methimazole has been added You will need to follow-up with your PCP Maintain blood pressure and blood glucose log I am giving you referral to see Dr. Haque franchise field consultant and electrolysis needle operator Dr. Barrera Please taper off clonidine start taking 0.1 mg 3 times daily and then twice a day and then once a day and then taper off in next 1 week For your blood pressure I am giving you amlodipine 10 mg daily, hydralazine 10 mg twice daily which is on top of her 2 other medications metoprolol and Cardizem For blood pressure number is below 90/60 please do not take blood pressure medications I will discharge her home with Holter monitor to monitor your heart rate For diabetes do not take metformin and glipizide or glimepiride I am giving you Sitagliptin and Dr. Barrera's referral You might benefit from injectable drug which is once a week please follow-up with electrolysis needle operator hemoglobin A1c is 8.2 Coding Level of Care Code Acute g [facility] note Diagnoses Acute kidney injury N17.9 Hypercalcemia E83.52 Hypertensive urgency I16.0
[2021-12-31] MEDS: metoprolol tartrate 1 mg/1 mL SDV 5 mL 5 MG IVP (11:40)
[2021-12-31 11:43] LABS: KAPPA LIGHT CHAIN, FREE, SERUM 62.2 mg/L (3.3-19.4); KAPPA/LAMBDA LIGHT CHAINS FREE 1.07 (0.26-1.65); LAMBDA LIGHT CHAIN, FREE, SERU 58.1 mg/L (5.7-26.3)
[2021-12-31] MEDS: magnesium oxide 400 mg tablet PO ×2 (11:45→22:12)
[2021-12-31 11:54] LABS: Glucose Point of Care 212 mg/dL (70-110)
[2021-12-31] MEDS: insulin lispro 100 unit/1 mL SUBCUT ×2 (12:00→17:44)
--- NOTE | 2021-12-31 12:03 | PC.SOCIAL ---
Pg 2 IMM Explained to pt Pg 2 IMM. No questions voiced. Provided pt a copy. Initialed, dated, & timed a copy & placed in chart.
--- NOTE | 2021-12-31 14:47 | P.PN_ITS ---
Subjective Subjective: Initially there was plan to discharge her today However her A. fib RVR is consistently between 10 5-1 10 I will add Cardizem 60 mg every 6 hours, Echo report is pending Requested D-dimer Vitals/I&O/Wt Last Vital Signs Temp 98.5 F 12/31/21 12:00 Pulse 106 H 12/31/21 12:00 Resp 17 12/31/21 08:00 BP 159/73 12/31/21 12:00 Pulse Ox 99 12/31/21 12:00 O2 Del Method 12/31/21 00:03 O2 Flow Rate 9 12/29/21 00:00 12/30/21 12/31/21 12/31/21 22:59 06:59 14:59 Intake Total 240 / 1240 360 / 360 Output Total 850 / 850 1300 / 2150 Balance -610 / 390 -1300 / -910 360 / 360 Physical Exam Narrative: Patient is upset that she has to stay in the hospital 1 more day However agreeable to stay Nonfocal neuro exam Daughter at the bedside Variable S1-S2 Abdomen soft Ledesma catheter has been removed Awake and alert Euvolemic Urinary Catheter Management: Ledesma: Cath Placed During This Visit: yes, but has since been removed by the nurse Reason for Continuing Indwelling Catheter: Acute Urinary Retention or Obstruction Urinary Catheter Date of Insertion: 12/28/21 Urinary Catheter Time of Insertion: 03:10 Date Urinary Catheter Removed: 12/31/21 Time Urinary Catheter Discontinued: 09:35 Data : 12/31/21 04:54 12/31/21 04:54 A&P Assessment and plan (1) Acute kidney injury: Status: Acute (2) Hypercalcemia: Status: Acute (3) Anemia: Status: Acute (4) Hypertensive urgency: Status: Acute (5) Hyperkalemia: Status: Acute (6) Acute kidney injury: Status: Acute (7) Uremia: Status: Acute (8) Hyperthyroidism: Status: Acute (9) Atrial fibrillation with RVR: Status: Acute Plan New onset A. fib RVR Metoprolol 100 mg twice daily Cardizem 60 mg every 6 hours She will need Eliquis 2.5 twice daily considering high creatinine [id number] 4 Waiting on echo report CHRISTOPH: Resolving outpatient nephro follow-up Hypercalcemia: Improved Dehydration: Resolved Hypertension: Added hydralazine, continue amlodipine and metoprolol along Cardizem Patient is full code Hyperthyroid, added methimazole We will do thyroid ultrasound, check thyroid-stimulating antibodies She will need Dr. Barrera follow-up Patient was counseled Clonidine taper Attestations Medical Necessity Statement*: Discharge in next 24 hours if stable Time Spent in Patient Care: 40 Coding Level of Care Code Acute Sludge Control Attendant for Chg Fwd Diagnoses Acute kidney injury N17.9 Hypercalcemia E83.52 Anemia D64.9 Hypertensive urgency I16.0 Hyperkalemia E87.5 Acute kidney injury N17.9 Uremia N19 Hyperthyroidism E05.90 Atrial fibrillation with RVR I48.91
--- NOTE | 2021-12-31 14:50 | US_ITS ---
WS: [id number] THYROID ULTRASOUND HISTORY: Hyperthyroid COMPARISON: None available. Right lobe: 4.2 cm x 3.9 cm x 7.1 cm (w x ap x l). Volume: 60.6 cm3. Enlarged heterogeneous gland. There are multiple cystic components throughout this enlarged gland. No well-circumscribed dominant nodule. There are innumerable echogenic foci. Majority of these foci con tained comet tail artifact suggesting these are probably colloid cyst related. Due to the extensive involvement underlying malignancy cannot be excluded. Left lobe: 2.5 cm x 3.0 cm x 6.7 cm (w x ap x l). Volume: 26.2 cm3. Enlarged heterogeneous gland. There are multiple cystic nodules throughout the gland. There are also innumerable echogenic foci. Some of these echogenic foci have comet tail artifact suggesting benignit y from colloid cysts. Others do not contain ring down artifact. Isthmus: 0.5 cm. US/US thyroid 77810 IMPRESSION: 1. Abnormal thyroid. The heart is enlarged with multiple cysts throughout. Sev eral spongiform nodules which are benign are noted. 2. Innumerable bilateral echogenic foci throughout the gland. Some of these ar e benign in appearance consistent with colloid cysts. Other echogenic foci are also present. Benignity cannot be confirmed throughout the thyroid gland. 3. Recommend follow-up with ENT for evaluation. It would be difficult to biops y this gland due to the diffuse abnormality.
[2021-12-31 14:54] LABS: D Dimer 1.65 ug/mIFEU (0-0.59)
[2021-12-31] MEDS: dilTIAZem 60 mg Tablet PO ×2 (15:36→21:01)
--- NOTE | 2021-12-31 16:15 | USCV_ITS ---
Ada Herbert Age: 66 Gender: F : 1955 Exam Date: 12/31/2021 17:21 Ordering Phys: Susan White MD Technologist: Aki Coleman Exam Location: [facility]_ Indication: afib, leg cramps PROCEDURES: Venous duplex imaging was performed in bilateral lower extremities. The following venous structures were evaluated: common femoral vein, profunda vein, proximal portion of the greater saphenous vein, superficial femoral vein, and the popliteal vein. In addition, the posterior tibial and peroneal trunk were evaluated. Serial compression, augmentation maneuvers, and spectral Doppler flow evaluation were performed. FINDINGS: Normal 2-D Doppler and augmentation and compressibility throughout the lower extremity venous structures. Additional imaging through the proximal calf veins also reveals no thrombus. Limited evaluation of the greater saphenous vein is patent with no thrombus.. CONCLUSIONS No evidence of right lower extremity DVT. No evidence of left lower extremity DVT. Raymond Bull MD (Electronically Signed) Final Date: 01 January 2022 16:22 S
[2021-12-31 16:18] LABS: Albumin,Urine Random 62 %; Alpha-1-Globulins Urine Random 5 %; Alpha-2-Globulins Urine Random 8 %; Beta-Globulin,Urine Random 13 %; Gamma Globulin,Urine Random 12 %
[2021-12-31 16:55] LABS: Glucose Point of Care 162 mg/dL (70-110)
[2021-12-31 20:31] LABS: Glucose Point of Care 196 mg/dL (70-110)
--- NOTE | 2021-12-31 20:35 | P.PN_ITS ---
Subjective Subjective: I am seeing her in follow up for her renal failure and hypercalcemia. Developed A.FIB so discharge has been cancelled Medications: Reviewed: Yes Vitals/I&O/Wt Last Vital Signs Temp 98.3 F 12/31/21 15:53 Pulse 121 H 12/31/21 15:53 Resp 17 12/31/21 15:53 BP 186/78 12/31/21 15:53 Pulse Ox 98 12/31/21 15:53 O2 Del Method 12/31/21 00:03 O2 Flow Rate 9 12/29/21 00:00 12/31/21 12/31/21 12/31/21 06:59 14:59 22:59 Intake Total 720 / 720 240 / 960 Output Total 1300 / 2150 Balance -1300 / -910 720 / 720 240 / 960 Physical Exam Const: GENERAL APPEARANCE: cooperative and comfortable ORIENTATION/CONSCIOUSNESS: Yes awake, Yes oriented to person, Yes oriented to place and Yes oriented to time Neuro: SENSORIUM/ORIENTATION: Yes oriented to person, Yes oriented to place and Yes oriented to time Urinary Catheter Management: Ledesma: Cath Placed During This Visit: yes, but has since been removed by the nurse Reason for Continuing Indwelling Catheter: Acute Urinary Retention or Obstruction Urinary Catheter Date of Insertion: 12/28/21 Urinary Catheter Time of Insertion: 03:10 Date Urinary Catheter Removed: 12/31/21 Time Urinary Catheter Discontinued: 09:35 Data : 12/31/21 04:54 12/31/21 04:54 A&P Assessment and plan (1) Acute kidney injury: Kidney function staying stable. 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
[2021-12-31] MEDS: enoxaparin 60 mg/0.6 mL Syringe SUBCUT (21:00)
[2021-12-31] MEDS: insulin glargine 100 units/1 mL 10 UNIT SUBCUT (21:00)
[2021-12-31] MEDS: metoprolol tartrate 50 mg Tablet 100 MG PO (22:12)
[2022-01-01] VITALS (7 sets, daily range): BP systolic 143–182; BP diastolic 68–81; PULSE 79–131; RESP 16–18; TEMP 36.6–38.3; O2SAT 96–99
[2022-01-01] MEDS: acetaminophen 325 mg Tablet 650 MG PO (00:10)
--- NOTE | 2022-01-01 03:06 | PC.NURSE ---
Patient's heart rate 85 SR. Cardizem drip shut off. Dr. Gunn notified by primary RN.
[2022-01-01] MEDS: dilTIAZem 60 mg Tablet PO ×2 (03:09→08:45)
[2022-01-01 06:41] LABS: Glucose Point of Care 103 mg/dL (70-110)
[2022-01-01 07:17] LABS: Alanine Aminotransferase 30 U/L (0-33); Albumin Level 2.9 g/dL (3.5-5.2); Alkaline Phosphatase 141 U/L (35-105); Anion Gap 14.8 (5-19); Aspartate Amino Transferase 24 U/L (0-32); Blood Urea Nitrogen 46 mg/dL (8-23); Calcium 10.1 mg/dL (8.5-10.5); Carbon Dioxide 20 mmol/L (22-29); Chloride 105 mmol/L (98-107); Globulin 2.4 g/dL (1.3-4.6); Glomerular Filtration Rate 24.9 mL/min (90-130); Glucose 80 mg/dL (65-115); Osmolality Calculated 293 mOsm/kg (285-295); Potassium 3.8 mmol/L (3.5-5.1); Sodium 136 mmol/L (136-145); Total Bilirubin 0.2 mg/dL (0.15-1.2); Total Protein 5.3 g/dL (6.6-8.7)
[2022-01-01] MEDS: amoxicillin-clav 875-125 mg Tablet 1 TAB PO (08:34)
[2022-01-01] MEDS: amlodipine 10 mg Tablet PO (08:35)
[2022-01-01] MEDS: magnesium oxide 400 mg tablet PO (08:35)
[2022-01-01] MEDS: methIMAzole 5 MG Tablet 10 MG PO (08:35)
[2022-01-01] MEDS: hyDRALAzine 25 mg Tablet PO (08:36)
[2022-01-01] MEDS: pantoprazole DR 40 mg Tablet PO (08:36)
[2022-01-01] MEDS: aspirin 81 mg EC Tablet PO (08:36)
[2022-01-01] MEDS: enoxaparin 60 mg/0.6 mL Syringe SUBCUT (08:38)
--- NOTE | 2022-01-01 10:02 | PM.DCS ---
Discharge Providers Date of Admission: 12/28/21 11:27 Date of Discharge: January 01, 2022 Attending Provider at Admission: John Gunn MD Attending Provider at Discharge: Suasn White MD Diagnoses at Discharge Discharge Diagnosis (1) Acute kidney injury: Status: Acute (2) Hypercalcemia: Status: Acute (3) Hypertensive urgency: Status: Acute (4) Anemia: Status: Acute Reason for Visit Reason for Visit: abnormal labs Hospital Course Hospital Course Pain [id number] female who was admitted to the hospital for management of dehydration related ATN. With IV fluid hydration, adequate urine output, she was diagnosed with hyperthyroidism during hospitalization and new onset A. fib RVR, switch to normal sinus rhythm with use of Cardizem gtt., she remained hypotensive and tachycardic. No active chest pain or shortness of breath. Because of worsening of kidney function I have discontinued her glipizide glimepiride and metformin. I would prescribe her Sitagliptin at the time of discharge and outpatient Dr. Barrera's referral. Thyroid ultrasound showed multinodular thyroid which will need FNA/biopsy. I will give her referrals to check her TSH and free T4 within 3 days, thyroid-stimulating antibodies are pending. Mostly antibodies take 4 to 5 days to return depending on that result further plan will be made regarding ENT follow-up versus radioactive iodine uptake. Patient's creatinine is plateaued at 2. We will give her low-dose Eliquis. I will reduce the dose of clonidine 2.1 mg twice daily, added amlodipine, hydralazine, she is also getting metoprolol and Cardizem 240 mg daily. Did camp counselor her regarding rebound tachycardia and hypotension related to clonidine withdrawal. Hemoglobin A1c is 8.2. For her UTI she will get Augmentin. Physical Exam Urinary Catheter Management: Ledesma: Cath Placed During This Visit: yes, but has since been removed by the nurse Reason for Continuing Indwelling Catheter: Acute Urinary Retention or Obstruction Urinary Catheter Date of Insertion: 12/28/21 Urinary Catheter Time of Insertion: 03:10 Date Urinary Catheter Removed: 12/31/21 Time Urinary Catheter Discontinued: 09:35 Discharge Data Studies Completed and Pending Completed Studies During Hospitalization Category Date Time Status XR chest 1V portable [id number] Stat Exams 12/27/21 18:09 Completed CV. echo complete* [id number] Stat Ultrasound 12/31/21 11:01 Completed US renal BI* [id number] Stat Ultrasound 12/28/21 21:35 Completed [place] thyroid [id number] Routine Ultrasound 12/31/21 14:50 Completed Pending at discharge Category Date Time Status Ionized Calcium Routine Lab 12/27/21 21:51 Received SPEP [Total Protein Electrophoresis] Routine Lab 12/27/21 18:25 Results Thyroid Peroxidase Antobodies Routine Lab 12/31/21 04:42 Received Thyroid Stimulating Immunoglob Routine Lab 12/31/21 04:42 Received US venous duplex lower extremity bilat [CV venous Ultrasound 12/31/21 16:15 [place] [id number]] Routine Radiology Impressions Chest X-Ray 12/27/21 18:09 IMPRESSION: No acute findings. Renal Ultrasound 12/28/21 21:35 Impression: 1. Distended bladder. 2. Multiple small bilateral renal cysts. Thyroid Ultrasound 12/31/21 14:50 IMPRESSION: 1. Abnormal thyroid. The heart is enlarged with multiple cysts throughout. Several spongiform nodules which are benign are noted. 2. Innumerable bilateral echogenic foci throughout the gland. Some of these are benign in appearance consistent with colloid cysts. Other echogenic foci are also present. Benignity cannot be confirmed throughout the thyroid gland. 3. Recommend follow-up with ENT for evaluation. It would be difficult to biopsy this gland due to the diffuse abnormality. Laboratory Results WBC 6.1 10^3/uL (4.0-10.0) 12/31/21 04:54 RBC 2.93 10^6/uL (4.1-5.3) L 12/31/21 04:54 Hgb 8.0 g/dL (11.5-15.3) L 12/31/21 04:54 Hct 24.9 % (37.0-47.0) L 12/31/21 04:54 MCV 85.0 fl (81-99) 12/31/21 04:54 MCH 27.3 pg (28.0-34.0) L 12/31/21 04:54 MCHC 32.1 g/dL (30.0-36.0) 12/31/21 04:54 RDW 13.0 % (12.1-15.1) 12/31/21 04:54 Plt Count 272 10^3/cmm (130-400) 12/31/21 04:54 MPV 9.0 fL (7.4-10.4) 12/31/21 04:54 Neut % (Auto) 48.9 % 12/31/21 04:54 Lymph % (Auto) 33.2 % 12/31/21 04:54 Webb % (Auto) 12.8 % 12/31/21 04:54 Eos % (Auto) 4.4 % 12/31/21 04:54 Baso % (Auto) 0.5 % 12/31/21 04:54 Reticulocyte % (Auto) 1.5 % (0.5-2.0) 12/27/21 18:25 Neut # (Auto) 2.98 10^3/uL (1.8-7.7) 12/31/21 04:54 Lymph # (Auto) 2.0 10^3/uL (0.8-4.8) 12/31/21 04:54 Webb # (Auto) 0.8 10^3/uL (0.2-0.9) 12/31/21 04:54 Eos # (Auto) 0.3 10^3/uL (0.0-0.8) 12/31/21 04:54 Baso # (Auto) 0.0 10^3/uL (0.0-0.1) 12/31/21 04:54 Nucleated RBC % (auto) 0 % 12/31/21 04:54 Nucleated RBCs # 0.0 /100WBC 12/31/21 04:54 D-Dimer 1.65 ug/mIFEU (0-0.59) H 12/31/21 14:30 Sodium 136 mmol/L (136-145) 01/01/22 05:40 Potassium 3.8 mmol/L (3.5-5.1) 01/01/22 05:40 Chloride 105 mmol/L (98-107) 01/01/22 05:40 Carbon Dioxide 20 mmol/L (22-29) L 01/01/22 05:40 Anion Gap 14.8 (5-19) 01/01/22 05:40 BUN 46 mg/dL (8-23) H 01/01/22 05:40 Creatinine 2.0 mg/dL (0.5-0.9) H 01/01/22 05:40 GFR Calculation 24.9 mL/min (90-130) L 01/01/22 05:40 Glucose 80 mg/dL (65-115) 01/01/22 05:40 POC Glucose 103 mg/dL (70-110) 01/01/22 06:25 Estimat Average Glucose 189 12/28/21 01:14 Hemoglobin A1c 8.2 % (4.0-6.0) H 12/28/21 01:14 Calculated Osmolality 293 mOsm/kg (285-295) 01/01/22 05:40 Lactic Acid 1.5 mmol/L (0.5-2.2) 12/28/21 01:14 Calcium 10.1 mg/dL (8.5-10.5) 01/01/22 05:40 Phosphorus 2.9 mg/dL (2.5-4.5) 12/30/21 04:42 Magnesium 1.6 mg/dL (1.7-2.3) L 12/30/21 04:42 Iron 37 ug/dL (37-145) 12/30/21 04:42 TIBC 167 mcg/dl 12/30/21 04:42 % Saturation 22.1 % (20-50) 12/30/21 04:42 Unsat Iron Binding 130 ug/dL (112-347) 12/30/21 04:42 Ferritin 219 ng/mL (15-150) H 12/30/21 04:42 Total Bilirubin 0.2 mg/dL (0.15-1.2) 01/01/22 05:40 AST 24 U/L (0-32) 01/01/22 05:40 ALT 30 U/L (0-33) 01/01/22 05:40 Alkaline Phosphatase 141 U/L (35-105) H 01/01/22 05:40 Creatine Kinase 26 U/L (26-192) 12/27/21 18:25 Troponin T Baseline 34 ng/L (0-10) H 12/27/21 18:25 Troponin T 120 Minute 32.26 ng/L (0-10) H 12/27/21 20:32 Delta Troponin T -1.74 ABS# (0-10) L 12/27/21 20:32 Total Protein 5.3 g/dL (6.6-8.7) L 01/01/22 05:40 Albumin 2.9 g/dL (3.5-5.2) L 01/01/22 05:40 Globulin 2.4 g/dL (1.3-4.6) 01/01/22 05:40 Triglycerides 186 mg/dL (0-150) H 12/28/21 01:14 Cholesterol 103 mg/dL (0-200) 12/28/21 01:14 LDL Cholesterol, Calc 43 mg/dL (50-129) L 12/28/21 01:14 HDL Cholesterol 23 mg/dL (60-100) L 12/28/21 01:14 LDL/HDL Ratio 1.87 RATIO (0.00-3.22) 12/28/21 01:14 Cholesterol/HDL Ratio 4.48 mg/dL (0.0-4.40) H 12/28/21 01:14 Lipase Cancelled 12/27/21 18:25 25-OH Vitamin D Total 36 ng/mL (30-100) 12/29/21 05:58 Procalcitonin 0.48 ng/mL (0-0.5) 12/30/21 04:42 TSH 0.01 uIU/mL (0.27-4.20) L 12/28/21 01:14 Free T4 3.00 ng/dL (0.82-1.77) H 12/29/21 05:58 PTH Intact 61.3 pg/mL (15-65) 12/27/21 18:25 Calcium (PTH Intact) 12.5 mg/dL (8.5-10.5) H 12/27/21 18:25 Urine Color Yellow (Yellow) 12/27/21 22:08 Urine Appearance Cloudy (CLEAR) 12/27/21 22:08 Urine pH 6 (5-7) 12/27/21 22:08 Ur Specific Tony 1.005 (1.005-1.030) 12/27/21 22:08 Urine Protein 2+ (Negative) H 12/27/21 22:08 Urine Glucose (UA) 2+ (Normal) H 12/27/21 22:08 Urine Ketones Negative (Negative) 12/27/21 22:08 Urine Blood 2+ (Negative) H 12/27/21 22:08 Urine Nitrate Negative (Negative) 12/27/21 22:08 Urine Bilirubin Neg (Negative) 12/27/21 22:08 Urine Urobilinogen Norm mg/dL (Negative) 12/27/21 22:08 Ur Leukocyte Esterase 2+ (Negative) H 12/27/21 22:08 Urine RBC 5-10 /hpf (0-2) H 12/27/21 22:08 Urine WBC Too numerous to cnt /hpf (0-5) H 12/27/21 22:08 Ur Eosinophil Smear 6 (0-0) H 12/27/21 22:08 Ur Squamous Epith Cells 0-4 /hpf (0-5) H 12/27/21 22:08 Amorphous Sediment Not Reportable 12/27/21 22:08 Urine Bacteria 4+ /hpf (NONE) H 12/27/21 22:08 Urine Mucus 2+ /hpf 12/27/21 22:08 Urine Eosinophils Eosinophils seen H 12/27/21 22:08 Ur Random Creatinine 20 mg/dL (20-275) 12/28/21 02:50 Ur Random Albumin 62 % 12/28/21 02:50 U Random Total Protein 100 mg/dL (5-24) H 12/28/21 02:50 Ur Random Sodium 67 mmol/L 12/27/21 22:08 Ur Random Potassium 33 mmol/L 12/27/21 22:08 Ur Random Chloride 71 mmol/L 12/27/21 22:08 Urine Creatinine 24 mg/dL (28-217) L 12/27/21 22:08 Protein/Creatinin Ratio 5000 mg/g creat (21-161) H 12/28/21 02:50 Protein/Creat Ratio 24h 5.000 (0.021-0.161) H 12/28/21 02:50 U Random i-4-Oqxxotag % 5 % 12/28/21 02:50 U Random o-8-Cgtvzehx % 8 % 12/28/21 02:50 U Random Beta Globulin 13 % 12/28/21 02:50 U Random Gamma Glob 12 % 12/28/21 02:50 U Abnormal Prot Band 1 Not Reportable 12/28/21 02:50 U Abnormal Prot Band 2 Not Reportable 12/28/21 02:50 U Abnormal Prot Band 3 Not Reportable 12/28/21 02:50 Urine PEP Interpret See note 12/28/21 02:50 Urine Opiates Screen Negative ng/mL (Negative) 12/27/21 22:08 Ur Barbiturates Screen Negative ng/mL (Negative) 12/27/21 22:08 Ur Phencyclidine Scrn Negative ng/mL (Negative) 12/27/21 22:08 Ur Amphetamines Screen Negative ng/mL (Negative) 12/27/21 22:08 U Benzodiazepines Scrn Negative ng/mL (Negative) 12/27/21 22:08 Urine Cocaine Screen Negative ng/mL (Negative) 12/27/21 22:08 U Marijuana (THC) Screen Negative ng/mL (Negative) 12/27/21 22:08 Free [place] Light Chains 62.2 mg/L (3.3-19.4) H 12/28/21 01:14 Free Lambda Light Chain 58.1 mg/L (5.7-26.3) H 12/28/21 01:14 Free [place]/Lambda Ratio 1.07 (0.26-1.65) 12/28/21 01:14 Vitals Last Vital Signs Temp 97.9 F 01/01/22 08:48 Pulse 103 H 01/01/22 08:48 Resp 18 01/01/22 08:48 BP 176/68 01/01/22 08:48 Pulse Ox 97 01/01/22 07:58 O2 Del Method 01/01/22 07:58 O2 Flow Rate 9 01/01/22 08:42 Discharge Plan Discharge Patient Disposition: Home Condition: Stable Prescriptions: New methimazole 10 mg tablet 5 mg PO BID Qty: 60 0RF Eliquis 2.5 mg tablet 2.5 mg PO BID Qty: 120 4RF amlodipine 10 mg tablet 10 mg PO DAILY Qty: 60 2RF amoxicillin-pot clavulanate 875-125 mg Tablet 1 tab PO BID Qty: 3 0RF magnesium 200 mg tablet 200 mg PO DAILY Qty: 10 0RF potassium chloride 10 mEq tablet extended release 10 meq PO DAILY Qty: 7 0RF hydralazine 10 mg tablet 10 mg PO BID Qty: 60 2RF sitagliptin 25 mg tablet 25 mg PO DAILY Qty: 60 0RF Cardizem LA 240 mg tablet extended release 24 hr 240 mg PO DAILY Qty: 90 2RF Continued amlodipine 10 mg tablet 10 mg PO DAILY Women's Multivitamin Gummies 200 mcg Tablet,Chewable 2 tab PO DAILY Elderberry Zinc Vit C 90-15 mg Lozenge 2 mike PO DAILY metoprolol tartrate 100 mg tablet 100 mg PO BID Qty: 60 3RF Changed clonidine HCl 0.2 mg tablet 0.1 mg PO BID Qty: 30 0RF Discontinued glipizide 10 mg tablet 20 mg PO BID potassium chloride 10 mEq tablet extended release 10 meq PO BID aspirin [Aspir-81] 81 mg Tablet,Delayed Release (Dr/Ec) 81 mg PO BID glimepiride 2 mg tablet 4 mg PO BID triamterene-hydrochlorothiazid 75-50 mg tablet 1 tab PO DAILY Discharge Orders: Discharge Order (Routine); Ordered 01/01/22 Ordered By: Susan White Other Ambulatory Orders: Comprehensive Metabolic Panel (Routine) Timeframe: 3 Days Facility: [facility] - Location: Lab - Main Lab Ordered By: Susan White Free T4 Free Thyroxine (Routine) Timeframe: 3 Days Facility: [facility] - Location: Lab - Main Lab Ordered By: Susan White Thyroid Stimulating Hormone (Routine) Timeframe: 3 Days Facility: [facility] - Location: Lab - Main Lab Ordered By: Susan White DME: Wheelchair (Order) Location: None Selected Ordered By: Susan White Referrals: [facility] [place] [Outside] Anthony Haque MD [Referring] - 1-3 days (SENT REFERRAL) Robert Barrera MD [Physician] - 01/02/22 2:45 pm Discharge Diet: Cardiac Discharge Activity: Increase activity as tolerated Patient Instructions: Hydralazine (By mouth), Apixaban (By mouth) (Eliquis), Hyperthyroidism (DC), Thyroid Goiter (DC), Opioid Safety Activity Restrictions/Additional Instructions: You have been diagnosed with atrial fibrillation which is irregular heart rhythm that puts you at risk of stroke For that you will need Eliquis 2.5 mg twice daily for prevention of stroke and to control heart rate and you will get metoprolol 100 mg twice daily along Cardizem 240 mg daily If your heart rate still remains above 100 we probably have to increase your Cardizem dose to 240 mg Most likely cause of atrial fibrillation is your high T4 and low TSH which will qualify for hyperthyroidism to suppress her thyroid hyperfunctioning methimazole has been added You will need to follow-up with your PCP Maintain blood pressure and blood glucose log I am giving you referral to see Dr. Haque veterans' counselor and [id number] Barrera Please taper off clonidine start taking 0.1 mg 3 times daily and then twice a day and then once a day and then taper off in next 1 week For your blood pressure I am giving you amlodipine 10 mg daily, hydralazine 10 mg twice daily which is on top of her 2 other medications metoprolol and Cardizem For blood pressure number below 90/60 please do not take blood pressure medications For diabetes do not take metformin and glipizide or glimepiride I am giving you Sitagliptin and Dr. 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
[2022-01-01 11:18] LABS: Glucose Point of Care 183 mg/dL (70-110)
[2022-01-01 15:42] LABS: Thyroid Peroxidase Antobodies <1 IU/mL (<9)
[2022-01-02 08:14] LABS: ALBUMIN 2.8 g/dL (3.8-4.8); ALPHA 1 GLOBULIN 0.4 g/dL (0.2-0.3); BETA 1 GLOBULIN 0.4 g/dL (0.4-0.6); BETA 2 GLOBULIN 0.4 g/dL (0.2-0.5)
[2022-01-05 18:22] LABS: Thyroid Stimulating Immunoglob <89 % baseline (<140)
== END 2022-01-01 11:43 | disposition home or self-care (01) | DRG 683 ==
LOC: ER 20:41 → MEDSURG 22:05
PROVIDERS: Internal Medicine; Admitting Provider Family Medicine; Emergency Provider Emergency Medicine; Visit Provider Internal Medicine
DX: N17.0 Acute kidney failure with tubular necrosis (principal); E87.2 Acidosis; N39.0 Urinary tract infection, site not specified; N14.1 Nephropathy induced by other drugs, medicaments and biological substances; T38.3X5A Adverse effect of insulin and oral hypoglycemic [antidiabetic] drugs, initial encounter; I16.0 Hypertensive urgency; I10 Essential (primary) hypertension; E11.21 Type 2 diabetes mellitus with diabetic nephropathy; K59.00 Constipation, unspecified; E87.5 Hyperkalemia; E86.0 Dehydration; D64.9 Anemia, unspecified; R33.9 Retention of urine, unspecified; I48.91 Unspecified atrial fibrillation; E04.2 Nontoxic multinodular goiter
CPT/HCPCS: 36415; 36416; 51702; 51798; 71045; 76536; 76770; 80048; 80053; 80061; 80306; 81001; 82306; 82310; 82330; 82436; 82550; 82570; 82728; 82962; 83036; 83540; 83550; 83605; 83735; 83883; 83970; 84100; 84133; 84145; 84155; 84156; 84165; 84166; 84300; 84439; 84443; 84445; 84484; 85025; 85045; 85378; 85999; 86376; 87086; 93005; 93306; 93970; 94664; 96361; 96372; 96374; 96375; 97116; 97161; 97530; 99285; G0378; J1644; J1650; J1815; J1940; J3490; J7030; Q3014

== ENCOUNTER → 2022-01-10 07:56 | Outpatient (BNVA) | payer MEDICARE, SELFPAY | PROVIDERS: PCP Family Medicine; Referring Provider Internal Medicine; Visit Provider Internal Medicine | DX: Z09 Encounter for follow-up examination after completed treatment for conditions other than malignant neoplasm (principal); E05.90 Thyrotoxicosis, unspecified without thyrotoxic crisis or storm; I10 Essential (primary) hypertension; E04.2 Nontoxic multinodular goiter; Z87.891 Personal history of nicotine dependence | CPT/HCPCS: 99204 ==